=== PATIENT | female | born 1940 | race Caucasian/White ===

== ENCOUNTER 2016-11-15 23:35 | Emergency (ER) | payer MEDICARE, OTHER ==
[2017-01-07 13:23] VITALS: BMI 23.4
== END 2016-11-16 01:44 | disposition home or self-care (01) ==
LOC: D.ER 23:35
DX: T78.40XA Allergy, unspecified, initial encounter (principal); X58.XXXA Exposure to other specified factors, initial encounter; I48.91 Unspecified atrial fibrillation; I34.1 Nonrheumatic mitral (valve) prolapse; Z95.0 Presence of cardiac pacemaker; G20 Parkinson's disease

== ENCOUNTER 2016-11-27 15:42 | Emergency (ER) | payer MEDICARE, OTHER | END 2016-11-27 17:37 | disposition home or self-care (01) | LOC: D.ER 15:42 | DX: F41.9 Anxiety disorder, unspecified (principal); G20 Parkinson's disease; I48.91 Unspecified atrial fibrillation; Z95.0 Presence of cardiac pacemaker ==

== ENCOUNTER 2016-12-18 12:18 | Emergency (ER) | payer MEDICARE, OTHER ==
[2017-01-07 13:23] VITALS: BMI 23.4
== END 2016-12-18 14:57 | disposition home or self-care (01) ==
LOC: D.ER 12:18
DX: F41.9 Anxiety disorder, unspecified (principal); G20 Parkinson's disease; I48.2 Chronic atrial fibrillation; Z95.0 Presence of cardiac pacemaker

== ENCOUNTER 2017-01-04 18:26 | Observation (INO) | payer MEDICARE, OTHER ==
[~2017-01-04] VITALS: Ht 154.9 cm; Wt 55.3 kg
[2017-01-04 20:33] LABS: APPEARANCE CLEAR (CLEAR); BILIRUBIN NEGATIVE (NEGATIVE); COLOR YELLOW (YELLOW); GLUCOSE NEGATIVE (NEGATIVE); KETONE NEGATIVE (NEGATIVE); LEUKOCYTE ESTERASE NEGATIVE (NEGATIVE); NITRITE NEGATIVE (NEGATIVE); PROTEIN NEGATIVE (NEGATIVE); UROBILINOGEN NORMAL (NORMAL)
[2017-01-04 21:28] LABS: BASOPHILS 0.2 % (0.0-2.0); EOSINOPHILS 0.6 % (0-7); HEMATOCRIT 32.5 % (36.0-48.0); HEMOGLOBIN 10.9 g/dL (12-16); IMMATURE GRANULOCYTES 0.3 % (0-5); LYMPHOCYTES 35.2 % (15-50); MCH 29.6 pg (26.0-34.0); MCHC 33.5 g/dL (31.0-37.0); MCV 88.3 fL (80.0-100.0); MEAN PLATELET VOLUME 9.9 fL (7.4-10.4); MONOCYTES 7.8 % (2-11); NEUTROPHILS 55.9 % (40-80); PLATELET COUNT 141 10x3/uL (130-400); RBC 3.68 10x6/uL (4.00-5.40); RDW 13.9 % (11.5-14.5); WBC 6.5 10x3/uL (4.8-10.8)
[2017-01-04 21:45] LABS: CALCIUM 9.3 mg/dL (8.5-10.1); CARBON DIOXIDE 23.8 mmol/L (21.0-32.0); CREATININE - SERUM 1.3 mg/dL (0.6-1.3); POTASSIUM - SERUM 3.8 mmol/L (3.5-5.1)
[2017-01-05 00:18] VITALS: BP 129/65; BMI 23.1
--- NOTE | 2017-01-05 00:18 | NUR ---
RECIEVED PT FROM ER, ASSESSMENT COMPLETED, NO ACUTE DISTRESS NOTED, LUA DRAINING TO GRAVITY, IV TO L AC OCCLUDING, WILL RESITE PER PT REQUEST, PT AND SPOUSE ORIENTED TO ROOM AND CL, BOTH DENY NEEDS, FALL PRECAUTIONS IN PLACE, WILL MONITOR
[2017-01-05] MEDS ORDERED: SINEMET 25-1001 EACH PO (00:29)
[2017-01-05] MEDS ORDERED: CARDIZEM60 MG PO (00:30)
[2017-01-05] MEDS ORDERED: PACERONE200 MG PO (00:31)
[2017-01-05] MEDS ORDERED: MIRAPEX0.5 MG PO (00:31)
[2017-01-05] MEDS ORDERED: TRAZODONE HCL50 MG PO (00:32)
[2017-01-05] MEDS ORDERED: ELIQUIS5 MG PO (00:33)
[2017-01-05] MEDS ORDERED: XANAX0.5 MG PO (00:33)
--- NOTE | 2017-01-05 01:10 | NUR ---
IV TO L AC DC'D WITH CATH INTACT, 22 G PLACED IN L FOREARM X 1 ATTEMPT FLUIDS RESTARTED, DENISE WELL, DENIES NEEDS, FALL PRECAUTIONS IN PLACE, SPOUSE AT BEDSIDE, CL IN REACH
--- NOTE | 2017-01-05 04:54 | NUR ---
580 CC CLEAR YELLOW URINE EMPTIED FROM LUA, TUBING CLAMPED PER ORDERS, WILL REPORT TO DAY SHIFT, FALL PRECAUTIONS IN PLACE, CL IN REACH, SPOUSE IN ROOM
[2017-01-05 05:00] VITALS: BP 103/54
--- NOTE | 2017-01-05 07:00 | NUR ---
REPORT RECIEVED ASSUMED CARE. PATIENT IN BED WITH IV AND LUA INTACT. FAMILY AT BEDSIDE. CALL LIGHT WITHIN REACH.
--- NOTE | 2017-01-05 07:20 | NUR ---
pt voiced need to urinate, catheter unclamped, reported to day shift nurse
[2017-01-05 08:09] VITALS: BP 109/57
[2017-01-05 10:47] LABS: BASOPHILS 0 % (0.0-2.0); HEMATOCRIT 29.6 % (36.0-48.0); HEMOGLOBIN 9.7 g/dL (12-16); IMMATURE GRANULOCYTES 0.5 % (0-5); MCH 29.4 pg (26.0-34.0); MCHC 32.8 g/dL (31.0-37.0); MCV 89.7 fL (80.0-100.0); MEAN PLATELET VOLUME 9.4 fL (7.4-10.4); MONOCYTES 10.4 % (2-11); NEUTROPHILS 52.1 % (40-80); PLATELET COUNT 119 10x3/uL (130-400); RDW 14.4 % (11.5-14.5)
[2017-01-05 10:56] LABS: WBC 4.1 10x3/uL (4.8-10.8)
[2017-01-05 11:06] LABS: ALBUMIN 2.9 g/dL (3.4-5.0); ANION GAP 10.1 mmol/L (8-16); BILIRUBIN - TOTAL 0.62 mg/dL (0.2-1.3); CALCIUM 8.7 mg/dL (8.5-10.1); CARBON DIOXIDE 29.1 mmol/L (21.0-32.0); POTASSIUM - SERUM 4.2 mmol/L (3.5-5.1); PROTEIN - SERUM 6.1 g/dL (6.4-8.2)
[2017-01-05 11:56] VITALS: BP 118/65
[2017-01-05 14:19] VITALS: Ht 154.9 cm; Wt 55.3 kg
[2017-01-05 16:20] VITALS: BP 126/69
--- NOTE | 2017-01-05 18:45 | NUR ---
PATIENT IN BED WITH NO COMPLAINTS. IV AND LUA INTACT. LAYING DOWN WITH EYES CLOSED RESTIN. FAMILY AT BEDSIDE. CALL LIGHT WITHIN REACH. BA ON.
[2017-01-05 20:14] VITALS: BP 129/69
--- NOTE | 2017-01-05 20:54 | NUR ---
AROUSES EASILY TO VERBAL STIMULI. IV INFUSING TO LEFT ARM AT 100 CC/HR. NO REDNESS OR EDEMA NOTED. PURPLE BRUISING RO LEFT HIP NOTED. CL IN REACH. AT BEDSIDE.
[2017-01-06 00:04] VITALS: BP 143/73
--- NOTE | 2017-01-06 01:06 | NUR ---
RESTING QUIETLY.NO DISTRESS NOTED. CL IN REACH. AT BEDSIDE.
--- NOTE | 2017-01-06 03:26 | NUR ---
PT IS AWAKE RESTING QUEST IN BED WITH NO RESP DISTRESS NOTED AND NO COMPLAINTS VOICED. REMAINS AT THE BEDSIDE TALKING WITH ASSIGNED NURSE. THE BED IS LOW, RAILS UP X'S 2 WITH THE CALL LIGHT AT HAND.
[2017-01-06 03:59] VITALS: BP 123/61
--- NOTE | 2017-01-06 05:19 | NUR ---
AROUSES EASILY TO VERBAL STIMULI. NO DISTRESS NOTED. CL IN REACH.
[2017-01-06 05:50] LABS: BASOPHILS 0.2 % (0.0-2.0); EOSINOPHILS 1.5 % (0-7); HEMATOCRIT 30.5 % (36.0-48.0); HEMOGLOBIN 9.9 g/dL (12-16); IMMATURE GRANULOCYTES 0.2 % (0-5); LYMPHOCYTES 36.5 % (15-50); MCH 29.2 pg (26.0-34.0); MCHC 32.5 g/dL (31.0-37.0); MONOCYTES 11.6 % (2-11); PLATELET COUNT 127 10x3/uL (130-400); RBC 3.39 10x6/uL (4.00-5.40); RDW 14.2 % (11.5-14.5); WBC 4.1 10x3/uL (4.8-10.8)
[2017-01-06 06:14] LABS: ALBUMIN 2.7 g/dL (3.4-5.0); ANION GAP 10.1 mmol/L (8-16); BILIRUBIN - TOTAL 0.7 mg/dL (0.2-1.3); CALCIUM 8.1 mg/dL (8.5-10.1); CARBON DIOXIDE 28.5 mmol/L (21.0-32.0); POTASSIUM - SERUM 3.6 mmol/L (3.5-5.1); PROTEIN - SERUM 5.7 g/dL (6.4-8.2)
[2017-01-06 08:34] VITALS: BP 118/63
--- NOTE | 2017-01-06 10:55 | NUR ---
01/06/2017 10:54 DCP: Discharge Planning Inpatient rehab screen ordered & completed. Patient accepted & is agreeable to transfer. Waiting bed assignment.
--- NOTE | 2017-01-06 11:01 | NUR ---
Rehab Note- Spoke with patient, the patient is a good candidate for IRF. Spoke with Nadeen charge nurse & NUVIA Kirby. Thank you for this referral! Lee Ann Raymond RN Clinical Liaison, [facility]
[2017-01-06] MEDS ORDERED: ACETAMINOPHEN325 MG PO (11:43)
[2017-01-06] MEDS ORDERED: IPRAT-ALBUT 0.5-3 ML UPD (11:43)
[2017-01-06] MEDS ORDERED: PROTONIX40 MG PO (11:44)
[2017-01-06] MEDS ORDERED: ONDANSETRON4 MG/2 M3 IV (11:44)
[2017-01-06] MEDS ORDERED: LEVAQUIN500 MG PO (11:44)
[2017-01-06] MEDS ORDERED: PHENAZOPYRIDIN200 MG PO (11:44)
[2017-01-06 12:21] VITALS: BP 103/54
--- NOTE | 2017-01-06 15:09 | NUR ---
RECEIVED PATIENT LAYING IN BED. AWAKE AND ALERT. AT BEDSIDE. IV D5LR INFUSING AT 100CC/HR PER LEFT ARM. LUA TO GRAVITY DRAINING CLEAR YELLOW URINE. RELATES IS WETTING ON HERSELF AND URINE WAS NOTED TO BE ON HER SHEET. BULB DEFLATED AND RE-INFLATED. REPOSITONED DRAINAGE TUBE ON LEG. BED CLEANED AND WILL MONITOR FOR FURTHER LEAKAGE. LARGE BRUISE NOTED TO LEFT HIP FROM FALL PRIOR TO HOSPITALIZATION. CALM AND COOPERATIVE.
--- NOTE | 2017-01-06 20:40 | NUR ---
DISCHARGED TO REHAB. PERSONAL BELONGINGS SENT WITH PATIENT. REMAINS AT BEDSIDE.
== END 2017-01-06 22:49 ==
LOC: D.ER 18:26 → D.MS 21:46 → OBSVTIME 21:46 → D.MS 21:46 → D.ER 21:46 → D.MS 01-06 22:49
PROVIDERS: Nurse Practitioner Acute Care; ADMIT Family Medicine
DX: M25.552 Pain in left hip (principal); W18.30XA Fall on same level, unspecified, initial encounter; R53.2 Functional quadriplegia; G20 Parkinson's disease; E03.9 Hypothyroidism, unspecified; Z95.0 Presence of cardiac pacemaker; I48.91 Unspecified atrial fibrillation; Z90.710 Acquired absence of both cervix and uterus

== ENCOUNTER 2017-01-06 21:13 | Inpatient (IN) | payer MEDICARE, OTHER ==
[~2017-01-06] VITALS: Ht 154.9 cm; Wt 56.2 kg
--- NOTE | 2017-01-06 21:10 | NUR ---
PT ARRIVED TO UNIT VIA WHEELCHAIR ACCOMPANIED BY HOSPITAL STAFF. PT IS A&OX3. PT HAS BRUISING TO LEFT BUTTOCK FROM FALLING AT HOME. PT DENIES NEEDS AT THIS TIME. BED LOW. CL IN REACH.
[~2017-01-06 21:13] MED LIST: ACETAMINOPHEN325 MG PO; CARDIZEM60 MG PO; ELIQUIS5 MG PO; IPRAT-ALBUT 0.5-3 ML UPD; LEVAQUIN500 MG PO; MIRAPEX0.5 MG PO; ONDANSETRON4 MG/2 M3 IV; PACERONE200 MG PO; PHENAZOPYRIDIN200 MG PO; PROTONIX40 MG PO; SINEMET 25-1001 EACH PO; TRAZODONE HCL50 MG PO; XANAX0.5 MG PO
[2017-01-06 22:19] VITALS: BP 123/64; BMI 23.4
--- NOTE | 2017-01-07 01:10 | NUR ---
PT RESTING, EYES CLOSED. BED LOW. CL IN REACH.
[2017-01-07 07:02] LABS: BASOPHILS 0.1 % (0.0-2.0); EOSINOPHILS 0.6 % (0-7); HEMATOCRIT 33.2 % (36.0-48.0); HEMOGLOBIN 10.9 g/dL (12-16); IMMATURE GRANULOCYTES 0.1 % (0-5); LYMPHOCYTES 25.4 % (15-50); MCH 29.2 pg (26.0-34.0); MCHC 32.8 g/dL (31.0-37.0); MONOCYTES 7.4 % (2-11); NEUTROPHILS 66.4 % (40-80); PLATELET COUNT 141 10x3/uL (130-400); RBC 3.73 10x6/uL (4.00-5.40); RDW 13.9 % (11.5-14.5)
[2017-01-07 07:10] LABS: WBC 7.7 10x3/uL (4.8-10.8)
[2017-01-07 07:12] LABS: ANION GAP 10.2 mmol/L (8-16); CALCIUM 8.8 mg/dL (8.5-10.1); CARBON DIOXIDE 29.6 mmol/L (21.0-32.0); CREATININE - SERUM 1.1 mg/dL (0.6-1.3); POTASSIUM - SERUM 3.8 mmol/L (3.5-5.1)
--- NOTE | 2017-01-07 08:15 | NUR ---
PT RESTING IN BED EATING BREAKFAST TOLERATING WELL WILL MONITER
[2017-01-07 08:22] VITALS: BP 130/66
--- NOTE | 2017-01-07 09:28 | NUR ---
RESTING QUIETLY IN BED CALL LIGHT IN REACH
[2017-01-07 13:23] VITALS: Ht 154.9 cm; Wt 56.2 kg
--- NOTE | 2017-01-07 17:43 | NUR ---
PT RESTING IN BED WITH EYES OPEN CALL LIGHT IN REACH NO PROBLEMS WILL MONITER
[2017-01-07 19:30] VITALS: BP 118/62
--- NOTE | 2017-01-07 21:40 | NUR ---
PT REQ AND REC'D PRN XANAX FOR ANXIETY ALONG WITH HS MEDS. PT DENIES FURTHUR NEEDS AT THIS TIME. BED LOW. CL IN REACH.
--- NOTE | 2017-01-08 01:45 | NUR ---
PT RESTING EYES CLOSED. BED LOW. CL IN REACH. WCTM.
[2017-01-08 07:00] VITALS: BP 115/71
--- NOTE | 2017-01-08 07:00 | NUR ---
Pt. was received at the beginning of this shift in bed awake and oriented x 3. No voiced complaints or concerns at this time. Vital signs: Temp. 96.6, pulse 72, resp. 16, b/p 115/71, 02Sat. 98%. Pt. will be monitored throughout this shift and assisted prn with adl's. Ma catheter has orange colored urine draining into closed bag system due to medication she is on. Telemetry is on and working. Call light is in reach.
--- NOTE | 2017-01-08 18:24 | NUR ---
Pt. complained of discomfort this morning and received Tylenol 650mg at 10:15am. She also became quite anxious and worried about her turcios catheter and the nurse that put it in her. She was given a Xanax 0.5mg at that time also. She complained of not having a bm when she heard her roommate has not had a bm lately. When her roommate was offered Prune juice and Miralax she chimmed in and said, "I'll take some of that." She was given the prune juice and miralax at 6pm. present visiting.
--- NOTE | 2017-01-08 19:35 | NUR ---
IN BED, TALKING IN CELLPHONE. DENIES NEEDS.
[2017-01-08 21:20] VITALS: BP 99/62
--- NOTE | 2017-01-08 21:20 | NUR ---
ASSESSMENT AND HS MEDS COMPLETE. NOTED PINK URINE WITH A FEW SMALL CLOTS IN LUA DRAIN LINE. BRIDGED HEELS FOR PRESSURE RELIEF. GAVE PATIENT XANAX 0.5 MG PO FOR C/O ANXIETY.
--- NOTE | 2017-01-09 | NUR ---
RESTING QUIETLY IN BED, EYES CLOSED.
--- NOTE | 2017-01-09 02:05 | NUR ---
RESTING IN BED, EYES CLOSED. NO APPARENT DISTRESS.
--- NOTE | 2017-01-09 04:40 | NUR ---
OM BED. AWAKENED I ENTERED ROOM TO EMPTY HER LUA DRAINAGE BAG. DENIES CURRENT NEEDS.
--- NOTE | 2017-01-09 06:45 | NUR ---
REMAINS IN BED, AWAKE. TOOK SCHEDULED PO PROTONIX. DENIES CURRENT NEEDS.
[2017-01-09 08:00] VITALS: BP 129/56
--- NOTE | 2017-01-09 08:00 | NUR ---
ANOTHER NURSE ASSISTED PATIENT TO WHEELCHAIR TO THE BATHROOM AND FROM THE BATHROOM BACK TO WHEELCHAIR. PATIENT IN WHEELCHAIR BESIDE HER BED. ASSESSED PATIENT'S ORIENTATION, PATIENT ORIENTED X'S 4. ANSWERED ALL QUESTIONS APPROPRIATELY. PATIENT DENIES NEEDS. SET UP PATIENTS BREAKFAST TRAY FOR HER. CALL LIGHT IN REACH.
--- NOTE | 2017-01-09 09:37 | NUR ---
PATIENT IS IN BED, ASSISTED INTO BED BY FREDO JACINTO. PATIENT STATED HER RIGHT HIP IS HURTING. SHE REQUESTED TYLENOL. ADMINISTERED TYLENOL, SEE JAN. PATIENT STATED SHE IS NOT COMFORTABLE. ASSISTED PATIENT TURNING TO HER LEFT SIDE AND POSITIONED A PILLOW BEHIND HER RIGHT HIP. PATIENT STATED SHE IS NOW MORE COMFORTABLE. PATIENT DENIES FURTHER NEEDS AT THIS TIME. BED IN LOWEST POSITION, CALL LIGHT IN REACH. BED RAILS UP X'S 2. AT BEDSIDE.
--- NOTE | 2017-01-09 12:20 | NUR ---
ASSISTED PATIENT FROM THE BATHROOM TO THE WHEELCHAIR. MINIMUM ASSISTANCE REQUIRED. ROLLED PATIENT IN WHEELCHAIR BESIDE HER BED, SET UP HER BEDSIDE TABLE IN REACH WITH HER TRAY. PATIENT NOW EATING LUNCH. CALL LIGHT IN REACH.
--- NOTE | 2017-01-09 13:45 | NUR ---
D/C PATIENT'S LUA CATHETER. WHILE TAKING OUT CATHETER A NURSE CAME IN AND STATED THE STUD SETTER SAID THE PATIENT IS IN V-TACH. I EXPLAINED THAT THE PATIENT IS HAVING TREMORS AND THE NURSE I GOT REPORT FROM LAST NIGHT SAID THAT TWICE LAST NIGHT THE STUD SETTER SAID IT LOOKED LIKE V-TACH WHEN THE PATIENT WAS HAVING TREMORS. PATIENT DOES NOT APPEAR TO BE IN DISTRESS. ONLY PAIN SHE STATED SHE IS HAVING IS IN HER RIGHT HIP. PATIENT STATED "WHEN MY TREMORS START BEING REALLY BAD LIKE THIS AT HOME I TAKE A XANAX. CAN I HAVE A XANAX. I HAVE ANXIETY. AND WHEN I GET ANXIOUS MY TREMORS GET WORSE."
--- NOTE | 2017-01-09 13:59 | NUR ---
CALLED ZANA, THE VEGETABLE GRADER ASKED HOW PATIENT'S RHYTHM IS NOW, SHE STATED "SHE IS 71 PACED."
--- NOTE | 2017-01-09 22:06 | NUR ---
PT RESTING IN BED WITH EYES CLOSED. AWOKE EASILY TO VERBAL STIMULI. ALERT AND ORIENTED X 3. DENIES ANY PAIN OR DISCOMFORT AT THIS TIME. PT ASSISTED UP TO THE BATHROOM AT THIS TIME. VOIDED WITHOUT DIFFICULTY. FULL BODY PARKINSONS TREMORS NOTED. PT TRANSFERS WITH SBA. VOIDED WITH SBA. VSS. TELEMETRY PADS NOTED TO BE LOOSENING, AND REPLACED AT THIS TIME. SR'S ARE UP X 2 IN BED. CALL LIGHT AND BEDSIDE TABLE ARE WITHIN EASY REACH.
--- NOTE | 2017-01-09 22:09 | NUR ---
PT IS RESTING IN BED WITH EYES OPEN. REQUESTED LIGHTS OUT.
[2017-01-09 22:26] VITALS: BP 136/61
--- NOTE | 2017-01-09 23:40 | NUR ---
RESTING IN BED, HOB UP 30 DEGREES. NO DISTRESS EVIDENT.
--- NOTE | 2017-01-10 02:02 | NUR ---
PT IS RESTING QUIETLY IN BED WITH EYES CLOSED. RESPS ARE EVEN AND UNLABORED. NO ACUTE DISTRESS NOTED.
--- NOTE | 2017-01-10 04:54 | NUR ---
PT ASSISTED TO THE BATHROOM. VOIDED WITHOUT DIFFICULTY. NO FURTHER NEEDS VOICED.
[2017-01-10 06:17] LABS: BASOPHILS 0.2 % (0.0-2.0); EOSINOPHILS 1.8 % (0-7); HEMATOCRIT 30.3 % (36.0-48.0); HEMOGLOBIN 10.2 g/dL (12-16); IMMATURE GRANULOCYTES 0.9 % (0-5); LYMPHOCYTES 31.5 % (15-50); MCH 30.3 pg (26.0-34.0); MCHC 33.7 g/dL (31.0-37.0); MCV 89.9 fL (80.0-100.0); MONOCYTES 11.6 % (2-11); PLATELET COUNT 157 10x3/uL (130-400); RBC 3.37 10x6/uL (4.00-5.40); RDW 14.5 % (11.5-14.5); WBC 5.6 10x3/uL (4.8-10.8)
[2017-01-10 06:46] LABS: ANION GAP 13.4 mmol/L (8-16); CALCIUM 8.9 mg/dL (8.5-10.1); CARBON DIOXIDE 26.7 mmol/L (21.0-32.0); CREATININE - SERUM 1.2 mg/dL (0.6-1.3); POTASSIUM - SERUM 4.1 mmol/L (3.5-5.1)
--- NOTE | 2017-01-10 07:00 | NUR ---
Pt. is resting in bed awake and oriented x 3. at bedside. Vital signs: Temp. 97.9, pulse 80, resp. 14, b/p 140/80, 02Sat. 98%. Call light in reach. No complaints or concerns at this time. Will be monitoring her and assisting prn with adl's.
--- NOTE | 2017-01-10 07:26 | RHP ---
PATIENT: CAITLIN ALVAREZ MEDICAL RECORD: [id number] ACCOUNT: [id number] LOCATION:[facility] Ledy1111 : 44 ADMISSION DATE: 01/06/17 REHABILITATION HISTORY AND PHYSICAL EXAMINATION POST ADMISSION PHYSICIAN EXAMINATION DATE OF ADMISSION TO THE REHAB: 01/06/2017 ADMITTING DIAGNOSES: Parkinson disease, bradykinesia and hypophonia. HISTORY OF PRESENT ILLNESS: The patient is a 76-year-old female admitted with Parkinson disease with frequent falls. She was diagnosed with idiopathic Parkinson disease many years ago, was taken care of at one point by neurologist, who is no longer practicing. She usually uses a rolling walker for ambulation, but has had at least 2-3 falls in the recent past, not clear if there has been a significant change in function, but on one occasion, she got up during the night without lights to go to the bathroom and became tangled in a rolling walker. On another, she headed into the bathroom where she fell backwards. She complained of left hip pain, most recent fall. Plain films revealed no fracture. She is awake and alert. Her extraocular muscles are intact. Her visual sutton appear to be within normal limits. Her face is symmetric. She has 5/5 strength in her extremities, but does have a noted resting tremor. There is no clear asymmetry at this time. Previously, she was moderately independent with a walker. Currently, she is having difficulty swallowing and urinary retention with pain. She will need a swallow eval to rule out aspiration as well as bladder training after she completes 5 days of antibiotics. COMORBIDITIES: Include functional quadriplegia, resting tremors, frequent falls, urinary retention, acute ____ pain, osteoarthritis, fatigue, weakness and pacemaker placement in the past. PAST MEDICAL HISTORY: Significant for frequent falls, urinary retention, osteoarthritis, Parkinson disease. PAST SURGICAL HISTORY: Includes cataract surgery, post-pacemaker placement, hysterectomy. ALLERGIES: CODEINE. CURRENT MEDICATIONS: Include Floranex daily. She is on Desyrel 50 mg q.h.s., Mirapex 0.25 mg t.i.d., Pyridium 200 mg t.i.d., Protonix 40 mg daily, Levaquin 500 mg daily, diltiazem 60 mg t.i.d., Sinemet 25/100 one tab t.i.d., Eliquis 5 mg b.i.d., amiodarone 200 mg b.i.d., Zofran 4 mg q.6 hours p.r.n. nausea and vomiting, DuoNeb updrafts, Xanax 0.5 mg t.i.d. p.r.n. and Tylenol 650 q.4-6 hours p.r.n. elevated temperature or pain. HABITS: No alcohol or tobacco use. FAMILY HISTORY: Noncontributory. SOCIAL HISTORY: The patient is and wants to return home with her spouse. REVIEW OF SYSTEMS: GENERAL: Does complain of weakness and fatigue. HISTORY AND PHYSICAL [id number] HAND,CAITLIN Rosa HEENT: Denies cold, cough or congestion. CARDIOVASCULAR: Denies chest pain. PHYSICAL EXAMINATION: VITAL SIGNS: Stable, afebrile. GENERAL: Thin female in no acute distress, alert upon exam. HEENT: Normocephalic, atraumatic. Mucosa moist. TMs appear shiny and mobile. NECK: Supple, with no lymphadenopathy. LUNGS: Clear at this time. HEART: Regular rate and rhythm. ABDOMEN: Benign. EXTREMITIES: No clubbing, cyanosis or edema. NEUROLOGIC: Consistent with Parkinson's. She does have a pill rolling tremor and bradykinesia. LABORATORY DATA: Her white count is 7.7, H&H of 11 and 33, and platelet count is 141. Her sodium is 139, potassium 3.8, BUN and creatinine of 13 and 1.1 and blood sugar is noted to be 84. ASSESSMENT: This is a 76-year-old female patient admitted to rehab with a working diagnosis of Parkinson disease with worsening symptomatology and frequent falls. The patient has potential to make improvement. We instituted the following multidisciplinary therapies including to, but not limited to physical, occupational, respiratory, speech, nutritional services, prosthetics and orthotics. Given her complex condition and risk for more complications, rehabilitation services cannot be provided at a low level of care such as a assisted facility. PLAN: 1. Admit to [facility] rehab for intensive inpatient therapy to include the following disciplines: A. Physical therapy to improve gait, all transfer skills and bed mobility to a modified independent level. B. Occupation therapy to improve activities of daily living to a modified independent level. C. Case management to assist with discharge planning and placement options. D. Nutrition to assist with nutritional needs. E. Rehabilitation nursing to assist in monitoring patient's underlying medical conditions and to assist with any type of bowel or bladder management. 2. The patient's current medication and medical care will be continued. 3. The patient will be placed on standard fall precautions. 4. We will work on getting her more stable on a rolling walker, so she can return home with her spouse and get back to her prior level of functioning. 5. We will discuss this patient during care team staff meeting this week. TRANSINT:[id number] Voice Confirmation ID: [id number] DOCUMENT ID: [id number] HISTORY AND PHYSICAL [id number] HANDCAITLIN SCOTT MD at 0726 CC: [id number] DICTATION DATE: 01/07/17823 ANGIOGRAPHY NURSE: 01/07/17 1240 ADM IN [place] [id number] [place] [address]
[2017-01-10 10:39] VITALS: BP 110/70
--- NOTE | 2017-01-10 10:54 | NUR ---
Pt. was seen by Dr. Castano this am and new order received for Dr. العلي consult. Dr. العلي's office notified of order for pt to be seen by Dr. العلي regarding her Parkinson's DX and her increased tremors. Pt. asked for something for headache and received Tylenol 650mg at 9:20am. Pt. went to therapy this morning.
--- NOTE | 2017-01-10 15:19 | NUR ---
Pt. is resting with eyes closed and lights off in her room at this time. Fresh ice water provided a second time this shift. No verbal requests at this time.
--- NOTE | 2017-01-10 18:40 | NUR ---
Pt. has rested well this evening. Her is back visiting her now.
[2017-01-10 19:00] VITALS: BP 127/68
--- NOTE | 2017-01-10 19:25 | NUR ---
RE-DELIVERED MENU TO PATIENT FOR COMPLETION SHE HAD NOT FINISHED IT BEFORE IT WAS PLACE BACK AT NURSING STATION.
--- NOTE | 2017-01-10 21:20 | NUR ---
IN BED, AWAKE. DENIES NEEDS.
--- NOTE | 2017-01-10 22:05 | NUR ---
ASSESSMENT AND HS MEDS COMPLETE. DENIES ANXIETY AT THIS TIME SAYING, "I DON'T NEED MY XANAX. I TOOK IT IN THE AFTERNOON AND I'M OK NOW." REFUSED PYRIDIUM. SAYS SHE IS NOT HAVING BLADDER SPASMS SINCE HER LUA CATHETER WAS D/C'D ON THE .
--- NOTE | 2017-01-10 23:45 | NUR ---
RESTING IN BED, EYES CLOSED.
--- NOTE | 2017-01-11 02:00 | NUR ---
PATIENT AWAKE. DENIES NEEDS.
--- NOTE | 2017-01-11 05:50 | NUR ---
GAVE PATIENT SCHEDULED PROTONIX. SAYS SHE WILL DO THERAPY IN CURRENT CLOTHING.
--- NOTE | 2017-01-11 07:40 | NUR ---
INTRODUCED SELF TO PT, BREAKFAST SERVED, PT STATES NO NEEDS AT THIS TIME, WILL CONTINUE TO MONITOR, CALL LIGHT WITHIN REACH.
[2017-01-11 08:17] VITALS: BP 126/71
--- NOTE | 2017-01-11 09:35 | NUR ---
MORNING MEDICATION GIVEN, PT IN THERAPY ROOM, PT TOLERATED WELL, WILL CONTINUE TO MONITOR.
--- NOTE | 2017-01-11 10:38 | NUR ---
PT IN THERAPY, WILL CONTINUE TO MONITOR.
--- NOTE | 2017-01-11 12:08 | NUR ---
AFTERNOON MEDICATION GIVEN, PT TOLERATED WELL, LUNCH DELIVERED, PT STATES NO NEW NEEDS AT THIS TIME, WILL CONTINUE TO MONITOR, CALL LIGHT WITHIN REACH.
--- NOTE | 2017-01-11 14:00 | NUR ---
Nutrition Follow Up: Chart reviewed. Pt is eating 89% meal avg on a Regular diet. Wt stable. +BM 01/10/17. Meds and labs noted. Pt with excellent po intake. Rec continue current diet. Will continue to provide selective menus and honor food preferences. RD following.
--- NOTE | 2017-01-11 14:31 | NUR ---
PT UP IN CHAIR TALKING WITH SPEECH THERAPY, AT SIDE, WILL CONTINUE TO MONITOR, CALL LIGHT WITHIN REACH.
--- NOTE | 2017-01-11 14:43 | NUR ---
AFTERNOON MEDICATION GIVEN, PT TOLERATED WELL, AT BEDSIDE, WILL CONTINUE TO MONITOR, CALL LIGHT WITHIN REACH.
--- NOTE | 2017-01-11 15:16 | NUR ---
PT STATES PAIN IN HIPS AT A 10, PAIN MED GIVEN, WILL CONTINUE TO MONITOR, CALL LIGHT WITHIN REACH.
--- NOTE | 2017-01-11 16:08 | NUR ---
PT TALKING ON CELL PHONE, PT STATES NO NEEDS AT THIS TIME, BED IN LOW POSITION, SIDE RAILS UP X'S 2, CALL LIGHT WITHIN REACH, WILL CONTINUE TO MONITOR.
--- NOTE | 2017-01-11 17:36 | NUR ---
PT SITTING UP IN CHAIR EATING DINNER, PT STATES NO NEEDS AT THIS TIME, WILL CONTINUE TO MONITOR, CALL LIGHT WITHIN REACH.
--- NOTE | 2017-01-11 18:22 | NUR ---
RESTING QUIETLY IN BED
--- NOTE | 2017-01-11 19:18 | NUR ---
PT RESTING QUIETLY IN SEMI PERRY POSITION, RESPIRATIONS REGULAR AND UNLABORED, NO S/S OF ACUTE DISTRESS. PT DENIES NEEDS. HAND TREMORS NOTED BILATERAL.
[2017-01-11 19:35] VITALS: BP 113/72
--- NOTE | 2017-01-11 21:00 | NUR ---
PT REQ AND REC'D XANAX AND TYLENOL WITH HS MEDS. PT DENIES FURTHUR NEEDS. WCTM. BED LOW. CL IN REACH.
--- NOTE | 2017-01-12 | NUR ---
PT RESTING, EYES CLOSED. BED LOW. CL IN REACH.
--- NOTE | 2017-01-12 01:56 | NUR ---
ASSISTED PT TO BR. PT BACK IN BED RESTING AND DENIES FURTHUR NEEDS. WCTM. BED LOW. CL IN REACH.
--- NOTE | 2017-01-12 04:44 | NUR ---
PT RESTING, EYES CLOSED. BED LOW. CL IN REACH.
[2017-01-12 06:20] LABS: BASOPHILS 0 % (0.0-2.0); EOSINOPHILS 1.5 % (0-7); HEMATOCRIT 29.9 % (36.0-48.0); HEMOGLOBIN 9.8 g/dL (12-16); IMMATURE GRANULOCYTES 1.2 % (0-5); MCH 29.6 pg (26.0-34.0); MCHC 32.8 g/dL (31.0-37.0); MCV 90.3 fL (80.0-100.0); MEAN PLATELET VOLUME 9.5 fL (7.4-10.4); MONOCYTES 11.6 % (2-11); NEUTROPHILS 57.7 % (40-80); PLATELET COUNT 155 10x3/uL (130-400); RBC 3.31 10x6/uL (4.00-5.40); RDW 14.7 % (11.5-14.5); WBC 5.2 10x3/uL (4.8-10.8)
--- NOTE | 2017-01-12 06:30 | NUR ---
PT TOOK AM MEDS WITHOUT DIFFICULTY. PT ASSISTED TO BR. PT BACK IN BED AND DENIES FURTHUR NEEDS. WCTM. BED LOW. CL IN REACH.
[2017-01-12 06:35] LABS: ANION GAP 11.1 mmol/L (8-16); CALCIUM 8.9 mg/dL (8.5-10.1); CREATININE - SERUM 1.3 mg/dL (0.6-1.3); POTASSIUM - SERUM 4.1 mmol/L (3.5-5.1)
--- NOTE | 2017-01-12 07:00 | NUR ---
Pt. was received at the beginning of this shift in bed awake and oriented x 3. No verbal complaints at this time. Will continue to monitor and assist prn with adl's. Call light is in her reach. No discomfort or distress found. Stable condition observed. Vital signs: Temp. 97.7, pulse 73, resp. 15, b/p 136/70, 02sat. 98%.
[2017-01-12 08:16] VITALS: BP 136/70
--- NOTE | 2017-01-12 15:16 | NUR ---
CARE TEAM MEETING: PATIENT AND SPOUSE ATTENDED MEETING. TENATIVE DISCHARGE DATE IS 01/14/17. PCP IS DILAN ROSENBAUM WILL FOLLOW WITH PATIENT. WILL CONTINUE TO FOLLOW WITH PATIENT UNTIL DISCHARGED
[2017-01-12 19:00] VITALS: BP 113/65
--- NOTE | 2017-01-12 19:35 | NUR ---
PT. IN BED WITH HOB UP FOR COMFORT WITH EYES CLOSED AND RESP. EVEN. PT. AWAKENS EASILY FOR ASSESSMENT. TREMORS TO BUE'S OBSERVED. PT. REPORTS THAT THE MD CHANGED HER MEDS TODAY IN HOPES TO DECREASE THE TREMORS. DRESSING TO LEFT HAND FROM INJURY PT. OBTAINED LAST NIGHT SHE SAID FROM THE W/C WHEN SHE WAS GOING TO THE BATHROOM. DRESSING C/D/I. PT. HAS NO VOICED NEEDS AT THIS TIME AND HER CALL LIGHT IS WITHIN REACH.
--- NOTE | 2017-01-12 23:03 | NUR ---
PT. IN BED WITH HOB UP FOR COMFORT WITH EYES CLOSED AND RESP. EVEN. CALL LIGHT WITHIN REACH.
--- NOTE | 2017-01-13 03:02 | NUR ---
PT. IN BED WITH HOB UP FOR COMFORT WITH EYES CLOSED AND RESP. EVEN. CALL LIGHT WITHIN REACH.
--- NOTE | 2017-01-13 07:50 | NUR ---
ASSSITED TO BR WITHOUT FALLS NOTED.
[2017-01-13 10:18] VITALS: BP 138/69
--- NOTE | 2017-01-13 11:50 | NUR ---
AMBULATING IN THE HALLWAY WITH THERAPY.
--- NOTE | 2017-01-13 13:41 | NUR ---
SITTING IN WHEELCHAIR IN THE GYM.
--- NOTE | 2017-01-13 15:38 | NUR ---
RESTING IN BED WITHOUT ANY NEEDS VOICED.
--- NOTE | 2017-01-13 16:50 | NUR ---
SITTING IN WHEELCHAIR TALKING TO PT IN ROOM 8842C.
--- NOTE | 2017-01-13 19:30 | NUR ---
SPOUSE AND PT WERE VISITING PT'S COUSIN ON UNIT, SPOUSE PUSHES PATIENT IN W/C. PT MOD IND TRANSFERRED SELF TO BED FROM W/C. COUPLE CONVERSE, PLEASANT, DENIES ANY NEEDS. PT STATES SHE IS READY TO GO HOME.
[2017-01-13 19:50] VITALS: BP 101/49
--- NOTE | 2017-01-14 00:38 | NUR ---
PT RESTING QUIETLY, RESPIRATIONS REGULAR AND UNLABORED, NO S/S OF ACUTE DISTRESS.
--- NOTE | 2017-01-14 06:48 | NUR ---
PT IN BED WITH HOB UP FOR COMFORT, EYES CLOSED, CHEST RISING AND FALLING, BED IN LOWEST POSITION AND CALL LIGHT WITHIN REACH.
--- NOTE | 2017-01-14 07:40 | NUR ---
SLEEPING IN BED WITH SIDERAILS UP X2.
[2017-01-14 08:55] VITALS: BP 118/53
--- NOTE | 2017-01-14 09:30 | NUR ---
PATIENT DISCHARGING HOME WITH SPOUSE.PATIENT CHOSE [facility] . [facility] WILL FOLLOW WITH PATIENT AT HOME. APPOINTMENTS: DR. MOSQUERA 01/24/17 @ 12:15, DR. JOSEPH 02/09/17 @ 8:20. PATIENT CHOICE FORM FOR HOME HEALTH AND [facility] FORM EXPLAINED, SIGNED AND FILED IN CHART. ORDERS HAVE BEEN FAXED WITH CONFORMATION RECIEVED.
--- NOTE | 2017-01-14 09:50 | NUR ---
DISCHARGE INSTRUCTIONS GIVEN AND EXPLAINED TO PT. D/C SALINE LOCK IN RT WRIST WITH 2X2 GAUZE AND TAPE APPLIED.
--- NOTE | 2017-01-14 10:25 | NUR ---
D/C HOME VIA WHEELCHAIR. STABLE CONDITION.
== END 2017-01-14 10:25 | disposition home health service (06) | DRG 56 ==
LOC: D.REHAB 21:13
PROVIDERS: ADMIT Emergency Medicine
DX: G20 Parkinson's disease (principal); R53.2 Functional quadriplegia; Z91.81 History of falling; R33.9 Retention of urine, unspecified; M19.90 Unspecified osteoarthritis, unspecified site; R53.83 Other fatigue; R53.1 Weakness; Z95.0 Presence of cardiac pacemaker; E03.9 Hypothyroidism, unspecified; I48.2 Chronic atrial fibrillation

== ENCOUNTER 2017-03-14 14:26 | Emergency (ER) | payer MEDICARE, OTHER ==
[2017-01-07 13:23] VITALS: BMI 23.4
[2017-03-14 16:39] LABS: BASOPHILS 0 % (0-2); EOSINOPHILS 0.2 % (0-7); HEMATOCRIT 32.9 % (36.0-48.0); HEMOGLOBIN 11.4 g/dL (12-16); IMMATURE GRANULOCYTES 0.4 % (0-5); LYMPHOCYTES 26.4 % (15-50); MCH 30.7 pg (26.0-34.0); MCHC 34.7 g/dL (31.0-37.0); MCV 88.7 fL (80.0-100.0); MEAN PLATELET VOLUME 10.1 fL (7.4-10.4); MONOCYTES 7.7 % (2-11); NEUTROPHILS 65.3 % (40-80); PLATELET COUNT 176 10x3/uL (130-400); RBC 3.71 10x6/uL (4.00-5.40); RDW 12.7 % (11.5-14.5)
[2017-03-14 16:50] LABS: APTT 33.7 SECONDS (22.8-39.4); INR 2.05 (0.85-1.17); PROTIME 23.1 SECONDS (11.6-15.0)
[2017-03-14 16:57] LABS: ALBUMIN 4.1 g/dL (3.4-5.0); ANION GAP 13.9 mmol/L (8-16); BILIRUBIN - TOTAL 0.9 mg/dL (0.2-1.3); CALCIUM 9.5 mg/dL (8.5-10.1); CARBON DIOXIDE 28.6 mmol/L (21.0-32.0); CREATININE - SERUM 1.8 mg/dL (0.6-1.3); POTASSIUM - SERUM 3.5 mmol/L (3.5-5.1); PROTEIN - SERUM 7.7 g/dL (6.4-8.2)
[2017-03-14 18:10] LABS: APPEARANCE CLEAR (CLEAR); BILIRUBIN NEGATIVE (NEGATIVE); COLOR YELLOW (YELLOW); GLUCOSE NEGATIVE (NEGATIVE); KETONE NEGATIVE (NEGATIVE); LEUKOCYTE ESTERASE NEGATIVE (NEGATIVE); NITRITE NEGATIVE (NEGATIVE); PROTEIN NEGATIVE (NEGATIVE); SPECIFIC GRAVITY 1.015 (1.005-1.020); UROBILINOGEN NORMAL (NORMAL)
== END 2017-03-14 19:56 | disposition home or self-care (01) ==
LOC: D.ER 14:26
PROVIDERS: Emergency Medicine
DX: R10.9 Unspecified abdominal pain (principal); K59.00 Constipation, unspecified; E87.1 Hypo-osmolality and hyponatremia; I48.2 Chronic atrial fibrillation; Z95.0 Presence of cardiac pacemaker; I34.1 Nonrheumatic mitral (valve) prolapse; G20 Parkinson's disease

== ENCOUNTER 2017-08-17 01:42 | Emergency (ER) | payer MEDICARE, OTHER ==
[2017-01-07 13:23] VITALS: BMI 23.4
== END 2017-08-17 03:40 | disposition home or self-care (01) ==
LOC: D.ER 01:42
DX: G20 Parkinson's disease (principal); D49.89 Neoplasm of unspecified behavior of other specified sites; R60.0 Localized edema

== ENCOUNTER 2017-08-29 20:24 | Emergency (ER) | payer MEDICARE, OTHER ==
[2017-01-07 13:23] VITALS: BMI 23.4
[2017-08-29 20:52] LABS: BASOPHILS 0 % (0-2); EOSINOPHILS 0.9 % (0-7); HEMATOCRIT 30.9 % (36.0-48.0); HEMOGLOBIN 10.3 g/dL (12-16); IMMATURE GRANULOCYTES 0.6 % (0-5); MCH 30.2 pg (26.0-34.0); MCHC 33.3 g/dL (31.0-37.0); MCV 90.6 fL (80.0-100.0); MEAN PLATELET VOLUME 9.9 fL (7.4-10.4); MONOCYTES 11.9 % (2-11); NEUTROPHILS 56.6 % (40-80); PLATELET COUNT 150 10x3/uL (130-400); RBC 3.41 10x6/uL (4.00-5.40); RDW 13.9 % (11.5-14.5); WBC 6.4 10x3/uL (4.8-10.8)
[2017-08-29 21:08] LABS: INR 1.48 (0.85-1.17); PROTIME 17.8 SECONDS (11.6-15.0)
[2017-08-29 21:20] LABS: ALBUMIN 3.1 g/dL (3.4-5.0); ALKALINE PHOSPHATASE 116 U/L (46-116); ALT (SGPT) 13 U/L (10-68); BILIRUBIN - TOTAL 0.52 mg/dL (0.2-1.3); CALC OSMOLALITY 285 mosm/kg (275-300); CALCIUM 8.7 mg/dL (8.5-10.1); CARBON DIOXIDE 26.8 mmol/L (21.0-32.0); CHLORIDE - SERUM 101 mmol/L (98-107); CREATININE - SERUM 1.7 mg/dL (0.6-1.3); GLUCOSE 99 mg/dL (74-106); POTASSIUM - SERUM 3.8 mmol/L (3.5-5.1); PROTEIN - SERUM 6.5 g/dL (6.4-8.2); SODIUM 139 mmol/L (136-145); UREA NITROGEN 34 mg/dL (7-18); eGFR NON AFRICAN AMERICAN 31 mL/min (90-120)
[2017-08-29 21:32] LABS: TROPONIN-I < 0.017 ng/mL (0.000-0.060)
[2017-08-29 21:40] LABS: APTT 34.6 SECONDS (22.8-39.4)
[2017-08-29 21:44] LABS: APPEARANCE CLEAR (CLEAR); BILIRUBIN NEGATIVE (NEGATIVE); COLOR YELLOW (YELLOW); GLUCOSE NEGATIVE (NEGATIVE); KETONE NEGATIVE (NEGATIVE); NITRITE NEGATIVE (NEGATIVE); PROTEIN NEGATIVE (NEGATIVE); UROBILINOGEN NORMAL (NORMAL)
[2017-08-29 21:46] LABS: BACTERIA FEW /hpf (NONE SEEN); RED CELLS - URINE 0-5 /hpf (0-5)
== END 2017-08-29 23:02 | disposition home or self-care (01) ==
LOC: D.ER 20:24
PROVIDERS: Emergency Medicine
DX: R20.2 Paresthesia of skin (principal); R60.0 Localized edema; F41.9 Anxiety disorder, unspecified; W19.XXXA Unspecified fall, initial encounter; Y93.89 Activity, other specified; Y92.89 Other specified places as the place of occurrence of the external cause

== ENCOUNTER 2017-10-12 10:40 | Inpatient (IN) | payer MEDICARE, OTHER ==
[~2017-10-12] VITALS: Ht 154.9 cm; Wt 54.4 kg
[2017-10-12 11:44] LABS: BASOPHILS 0.1 % (0-2); EOSINOPHILS 1.1 % (0-7); HEMOGLOBIN 10.8 g/dL (12-16); IMMATURE GRANULOCYTES 0.4 % (0-5); LYMPHOCYTES 18.1 % (15-50); MCH 29.8 pg (26.0-34.0); MCHC 33.8 g/dL (31.0-37.0); MCV 88.4 fL (80.0-100.0); MEAN PLATELET VOLUME 9.5 fL (7.4-10.4); MONOCYTES 11.4 % (2-11); NEUTROPHILS 68.9 % (40-80); RBC 3.62 10x6/uL (4.00-5.40); RDW 13.9 % (11.5-14.5); WBC 8.3 10x3/uL (4.8-10.8)
[2017-10-12 11:50] LABS: PLATELET COUNT 186 10x3/uL (130-400)
[2017-10-12 12:00] LABS: ALBUMIN 3.3 g/dL (3.4-5.0); ALKALINE PHOSPHATASE 105 U/L (46-116); ALT (SGPT) 7 U/L (10-68); BILIRUBIN - TOTAL 0.74 mg/dL (0.2-1.3); CALC OSMOLALITY 279 mosm/kg (275-300); CALCIUM 8.9 mg/dL (8.5-10.1); CARBON DIOXIDE 25.5 mmol/L (21.0-32.0); CHLORIDE - SERUM 100 mmol/L (98-107); CREATININE - SERUM 2.3 mg/dL (0.6-1.3); GLUCOSE 100 mg/dL (74-106); POTASSIUM - SERUM 4.4 mmol/L (3.5-5.1); PROTEIN - SERUM 7.9 g/dL (6.4-8.2); SODIUM 136 mmol/L (136-145); UREA NITROGEN 35 mg/dL (7-18); eGFR NON AFRICAN AMERICAN 22 mL/min (90-120)
[2017-10-12 12:11] LABS: CREATINE KINASE 138 UL (21-215); MAGNESIUM - SERUM 1.9 mg/dL (1.8-2.4); THYROID STIMULATING HORMONE 6.86 uIU/mL (0.36-3.74)
[2017-10-12 12:13] LABS: TROPONIN-I < 0.017 ng/mL (0.000-0.060)
[2017-10-12 12:31] LABS: INR 2.22 (0.85-1.17)
[2017-10-12 12:45] LABS: APPEARANCE HAZY (CLEAR); BACTERIA MODERATE /hpf (NONE SEEN); BILIRUBIN NEGATIVE (NEGATIVE); COLOR YELLOW (YELLOW); EPITHELIAL CELLS OCC /hpf (0-5); GLUCOSE NEGATIVE (NEGATIVE); KETONE NEGATIVE (NEGATIVE); MUCUS <1+ /lpf (NONE SEEN); NITRITE NEGATIVE (NEGATIVE); PROTEIN NEGATIVE (NEGATIVE); RED CELLS - URINE OCC /hpf (0-5); SPECIFIC GRAVITY 1.015 (1.005-1.020)
--- NOTE | 2017-10-12 14:18 | NUR ---
REPORT REC'D FROM SP ZULETA, IN ER. ROOM READY AND AWAITING PT ARRIVAL.
--- NOTE | 2017-10-12 15:00 | NUR ---
PT REC'D TO ROOM VIA STRETCHER. AND ER STAFF AT BEDSIDE. AAOX4. PARKISON TREMOR NOTED TO RUE AND RLE. PIV TO R FA FREE OF REDNESS AND SWELLING. AAOX4. NO COMPLAINTS OF PAIN. LUNG SOUNDS CLEAR AND EQUAL BILAT. REGULAR HEART RATE AND RHYTHM. L CHEST PM NOTED. BOWEL SOUNDS ACTIVE X4 QUADS. BRUISE NOTED TO LLE. PT STATED SHE FELL LAST NIGHT. PT STATES SHE IS FROM [facility]. WILL CALL FOR UPDATED MED LIST. SCD'S APPLIED. BED LOW, CALL LIGHT IN REACH, DENIES NEEDS. CPOC.
--- NOTE | 2017-10-12 15:45 | NUR ---
[facility] TO RECEIVE UP TO DATE MED LIST.
[2017-10-12 16:09] VITALS: BP 118/55
--- NOTE | 2017-10-12 17:30 | NUR ---
ASSESSMENT PER ADMIT FLOW SHEET.PT WITHOUT DISTRESS. AT BEDSIDE ASSISTING WITH MEAL.CALL LIGHT IN REACH.
[2017-10-12 17:41] VITALS: BP 124/66
[2017-10-12 20:00] VITALS: BP 105/53
[2017-10-13] VITALS: BP 94/36
[2017-10-13 04:00] VITALS: BP 120/57
[2017-10-13 05:17] LABS: BASOPHILS 0 % (0-2); EOSINOPHILS 0.5 % (0-7); HEMATOCRIT 27.7 % (36.0-48.0); HEMOGLOBIN 9.3 g/dL (12-16); IMMATURE GRANULOCYTES 0.4 % (0-5); LYMPHOCYTES 14.2 % (15-50); MCH 30.2 pg (26.0-34.0); MCHC 33.6 g/dL (31.0-37.0); MCV 89.9 fL (80.0-100.0); MEAN PLATELET VOLUME 9.6 fL (7.4-10.4); MONOCYTES 14.1 % (2-11); NEUTROPHILS 70.8 % (40-80); PLATELET COUNT 163 10x3/uL (130-400); RBC 3.08 10x6/uL (4.00-5.40); RDW 14.1 % (11.5-14.5)
[2017-10-13 05:19] LABS: WBC 5.6 10x3/uL (4.8-10.8)
--- NOTE | 2017-10-13 05:19 | NUR ---
PUT IN A PAGE TO JOSHUA. PT C/O SEVERE HEADACHE. HAVE TRIED HOT AND COLD PACKS THROUGHOUT THE NIGHT AND ALSO ZOFRAN TO TRY AND RELIEVE THE PAIN WITHOUT SUCCESS.
[2017-10-13 05:32] LABS: ANION GAP 12.1 mmol/L (8-16); CALCIUM 8.8 mg/dL (8.5-10.1); CARBON DIOXIDE 26.7 mmol/L (21.0-32.0); POTASSIUM - SERUM 3.8 mmol/L (3.5-5.1)
[2017-10-13 05:34] LABS: CREATININE - SERUM 1.7 mg/dL (0.6-1.3)
--- NOTE | 2017-10-13 07:00 | NUR ---
REPORT RECIEVED ASSUMED CARE. PATIENT IN BED WITH IV INTACT. NO COMPLAINTS AT THIS TIME. CALL LIGHT WITHIN REACH.
[2017-10-13 08:16] VITALS: BP 127/59
--- NOTE | 2017-10-13 11:30 | NUR ---
PATIENT HAD LARGE BM AFTER SUPPOSITORY. STILL STATING SHE FEELS LIKE SHE NEEDS TO GO MORE. WILL CONTINUE TO MONITOR. CALL LIGHT WITHIN REACH.
[2017-10-13 12:14] VITALS: BP 132/53
--- NOTE | 2017-10-13 12:37 | NUR ---
REHAB PRESCREENING Rehab referral received and chart reviewed. Ms. Kumar is a good candidate for ARU. I will interview patient and begin paper screen if she is agreeable to come. Thank you for this referral! Vanessa Benito, WET PROCESS ASSISTANT [employer] Re[facility]
--- NOTE | 2017-10-13 15:30 | NUR ---
PATIENT HAD ANOTHER BM. STOOL HARD STILL. NO COMPLAINTS AT THIS TIME. FAMILY AT BEDSIDE. CALL LIGHT WITHIN REACH.
[2017-10-13 15:38] VITALS: BP 117/52
--- NOTE | 2017-10-13 18:37 | NUR ---
PATIENT IN BED WITH IV INTACT. NO COMPLAINTS AT THIS TIME. FAMILY AT BEDSIDE. CALL LIGHT WITHIN REACH.
--- NOTE | 2017-10-13 19:49 | NUR ---
PT RESTING QUIETLY IN BED AT THIS TIME. NO COMPLAINTS NOTED. IV RIGHT WRIST INTACT, PATENT LR @ 100. FAMILY AT BEDSIDE. DENIES ANY OTHER NEEDS, WILL CONTINUE WITH PLAN OF CARE.
[2017-10-13 20:00] VITALS: BP 120/51
[2017-10-14] VITALS: BP 141/52
[2017-10-14 04:00] VITALS: BP 147/45
[2017-10-14 05:39] LABS: ALBUMIN 2.5 g/dL (3.4-5.0); ANION GAP 12.7 mmol/L (8-16); BILIRUBIN - TOTAL 0.64 mg/dL (0.2-1.3); CALCIUM 8.2 mg/dL (8.5-10.1); CARBON DIOXIDE 26.1 mmol/L (21.0-32.0); CREATININE - SERUM 1.3 mg/dL (0.6-1.3); POTASSIUM - SERUM 3.8 mmol/L (3.5-5.1); PROTEIN - SERUM 6.3 g/dL (6.4-8.2)
[2017-10-14 05:40] LABS: HEMATOCRIT 30.2 % (36.0-48.0); HEMOGLOBIN 10.7 g/dL (12-16); LYMPHOCYTES 16.9 % (15-50); MCH 31.3 pg (26.0-34.0); MCHC 35.4 g/dL (31.0-37.0); MCV 88.3 fL (80.0-100.0); MEAN PLATELET VOLUME 9.5 fL (7.4-10.4); NEUTROPHILS 70.9 % (40-80); PLATELET COUNT 147 10x3/uL (130-400); RBC 3.42 10x6/uL (4.00-5.40); RDW 13.7 % (11.5-14.5); WBC 6.8 10x3/uL (4.8-10.8)
--- NOTE | 2017-10-14 07:34 | NUR ---
AWAKE AND ALERT. ORIENTED X3. C/O BEING HOT THIS AM. LUNGS ARE CLEAR BILATERALLY, NO COUGH. SKIN IS INTACT WITHOUT REDNESS. IV TO RIGHT HAND PATENT WITHOUT REDNESS AT INSERTION SITE. AT BEDSIDE. DENIES NEEDS.
[2017-10-14 08:55] VITALS: BP 143/61
[2017-10-14] MEDS ORDERED: LIBRAX CAPSULE1 CAP PO (09:42)
[2017-10-14] MEDS ORDERED: COLACE100 MG PO ×2 (09:43→11:09)
[2017-10-14] MEDS ORDERED: ACETAMINOPHEN500 M1 PO (09:43)
[2017-10-14] MEDS ORDERED: ATIVAN0.5 MG PO (09:44)
[2017-10-14] MEDS ORDERED: HYDROCHLOROTHIA25 MG PO (09:44)
[2017-10-14] MEDS ORDERED: ZANTAC150 MG PO (09:45)
[2017-10-14] MEDS ORDERED: SYNTHROID75 MCG PO (09:45)
[2017-10-14] MEDS ORDERED: SINEMET CR 50-1 EACH PO (09:46)
[2017-10-14] MEDS ORDERED: SEROQUEL25 MG PO (09:46)
[2017-10-14] MEDS ORDERED: EFFEXOR37.5 MG PO (09:47)
[2017-10-14 09:51] VITALS: Ht 154.9 cm; Wt 54.4 kg
--- NOTE | 2017-10-14 10:00 | NUR ---
HOME MEDS RECONCILLED WITH [facility].
[2017-10-14] MEDS ORDERED: XOPENEX 1.1.25 MG/3 INH (11:08)
[2017-10-14] MEDS ORDERED: ESGIC TABLET1 TAB PO (11:09)
[2017-10-14] MEDS ORDERED: MIRALAX17 GM PO (11:09)
[2017-10-14] MEDS ORDERED: LEVOXYL100 MCG PO (11:10)
--- NOTE | 2017-10-14 11:16 | NUR ---
Patient Name: CAITLIN ALVAREZ Admission Status: ER Accout number: [id number] Admission Date: 10-13-2017 : 1940 Admission Diagnosis:WEAKNESS Attending: RIK, Current LOS: 1 Anticipated DC Date: Planned Disposition: Inpatient Rehab Primary Insurance: MEDICARE A & B Discharge Planning Comments: CM met with patient and (Neri) to assess discharge planning needs. Patient is a resident at [facility] where she is partially dependent. She sometimes needs helps with bathing and medications. Patient's stated that he would like to get them back to their home. Patient has Parkinson's. She has a shower chair, walker, and cane at home. Patient's plan is to go to inpatient rehab today. CM will continue to follow and assist with discharge planning needs as needed. PCP: Vanda Bacon on [facility] [phone] Patrol Driver: Adilene Lopez * Is the patient Alert and Oriented? Yes 0 * How many steps to enter\exit or inside your home? 0 0 * PCP Vanda 0 * Pharmacy [facility] 0 * Preadmission Environment Home with Family 0 * ADLs Partial Dependent 0 * Partial ADLs (Assistance needed) Bathing 0 * Equipment Cane Shower Chair Walker 0 * List name and contact numbers for known caregivers / representatives who currently or will assist patient after discharge: neri () [phone] * Community resources currently utilized Assisted Living 0 * Please name any agencies selected above. [facility] 0 * Additional services required to return to the preadmission environment? Yes 0 * Can the patient safely return to the preadmission environment? Yes 0 * Has this patient been hospitalized within the prior 30 days at any hospital? No 0 Grand Total: 0
--- NOTE | 2017-10-14 12:42 | NUR ---
ASSISTED WITH BED TAPIA. VOIDED 100CC CLEAR YELLOW URINE. SKIN CARE PER STAFF. REPORT CALLED TO MICHAEL SNOWDEN ON REHAB. ALL QUESTIONS ANSWERED.
[2017-10-14 13:25] VITALS: BP 136/63
--- NOTE | 2017-10-14 13:41 | NUR ---
DISCHARGED TO REHAB ROOM 1113 B VIA . DISCHARGE INSTRUCTIONS GIVEN BOTH VERBALLY AND WRITTEN. ALL QUESTIONS ANSWERED. NO NEW PRESCRIPTIONS AT THIS TIME. REPORT CALLED TO SHERRI IN REHAB. HAD EPISODE OF EMESIS PRIOR TO DISCHARGE. DENIED ANY NAUSEA AT THIS TIME. IV TO RIGHT WRIST AREA D/C WITH CATHETER INTACT.
== END 2017-10-14 13:43 | DRG 682 ==
LOC: D.ER 10:40 → OBSVTIME 13:23 → D.MS 13:23
PROVIDERS: Emergency Medicine; ADMIT Family Medicine
DX: N17.9 Acute kidney failure, unspecified (principal); R53.2 Functional quadriplegia; G20 Parkinson's disease; R53.1 Weakness; E86.0 Dehydration; K59.00 Constipation, unspecified; R06.00 Dyspnea, unspecified; E03.9 Hypothyroidism, unspecified; Z95.0 Presence of cardiac pacemaker; I48.91 Unspecified atrial fibrillation; W19.XXXA Unspecified fall, initial encounter

== ENCOUNTER 2017-10-14 13:47 | Inpatient (IN) | payer MEDICARE, OTHER ==
[~2017-10-14] VITALS: Ht 154.9 cm; Wt 53.5 kg
[~2017-10-14 13:47] MED LIST changes: +ACETAMINOPHEN500 M1 PO; +ATIVAN0.5 MG PO; +COLACE100 MG PO; +EFFEXOR37.5 MG PO; +ESGIC TABLET1 TAB PO; +HYDROCHLOROTHIA25 MG PO; +LEVOXYL100 MCG PO; +LIBRAX CAPSULE1 CAP PO; +MIRALAX17 GM PO; +SEROQUEL25 MG PO; +SINEMET CR 50-1 EACH PO; +SYNTHROID75 MCG PO; +XOPENEX 1.1.25 MG/3 INH; +ZANTAC150 MG PO
--- NOTE | 2017-10-14 14:03 | NUR ---
PATIENT IS ADMITTED TO REHAB FROM ACUTE FLOOR. IS HER PCP. DME AT HOME: SHOWER CHAIR, WALKER AND A CANE. SHE LIVES AT [facility] WITH HER . [facility] IS HER PHARMACY. WILL CONTINUE TO FOLLOW WITH PATIENT.
[2017-10-14 14:09] VITALS: BP 155/73; BMI 22.3
[2017-10-14 19:48] VITALS: BP 121/68
--- NOTE | 2017-10-14 19:48 | NUR ---
RECIEVED UP IN BED WITH EYES OPEN A ND SPOUSE AT BEDSIDE. PLEASANT AND COOPERATIVE. ALERT AND ORIENTED. DENIES ANY PAIN OR NEEDS. CALL LIGHT IN REACH.
[2017-10-14 20:58] VITALS: BP 121/68
--- NOTE | 2017-10-15 03:44 | NUR ---
RESTING IN BED WITH EYES CLOSED. NO S/S OF DISTRESS OBSERVED. CALL LIGHT AND OVERBED TABLE IN REACH. CHECKED AND CHNGED NEEDED.
[2017-10-15 05:34] LABS: BASOPHILS 0 % (0-2); EOSINOPHILS 3.7 % (0-7); HEMATOCRIT 25.9 % (36.0-48.0); HEMOGLOBIN 8.6 g/dL (12-16); IMMATURE GRANULOCYTES 0.4 % (0-5); LYMPHOCYTES 25.5 % (15-50); MCH 29.9 pg (26.0-34.0); MCHC 33.2 g/dL (31.0-37.0); MCV 89.9 fL (80.0-100.0); MEAN PLATELET VOLUME 9.4 fL (7.4-10.4); MONOCYTES 11.4 % (2-11); PLATELET COUNT 145 10x3/uL (130-400); RBC 2.88 10x6/uL (4.00-5.40); RDW 13.9 % (11.5-14.5); WBC 5.5 10x3/uL (4.8-10.8)
[2017-10-15 06:19] LABS: ANION GAP 11.8 mmol/L (8-16); CALCIUM 8.6 mg/dL (8.5-10.1); CARBON DIOXIDE 27.8 mmol/L (21.0-32.0); POTASSIUM - SERUM 3.6 mmol/L (3.5-5.1)
--- NOTE | 2017-10-15 06:37 | NUR ---
C/O SHOULDER PAIN. TYLENOL GIVEN PER ORDERS. PT IN WITH PT AT THIS TIME. CALL LIGHT IN REACH.
--- NOTE | 2017-10-15 08:00 | NUR ---
SITTING UP IN BED EATING BREAKFAST.CL IN REACH.
--- NOTE | 2017-10-15 13:38 | NUR ---
PT RESTING IN BED WITH EYES OPEN AND VISITORS AT BEDSIDE CALL LIGHT IN REACH NO PROBLEMS WILL MONITER
--- NOTE | 2017-10-15 19:50 | NUR ---
FAMILY MEMBERS TALK TO PT IN ROOM.
--- NOTE | 2017-10-15 20:00 | NUR ---
PT. IN BED WITH HOB UP FOR COMFORT AND IS VISITING WITH FEMALE VISITOR. NO VOICED NEEDS AND HER CALL LIGHT IS WITHIN REACH.
[2017-10-15 23:19] VITALS: BP 112/60
--- NOTE | 2017-10-16 00:34 | NUR ---
REST IN BED CALL LIGHT IN REACH.
--- NOTE | 2017-10-16 01:00 | NUR ---
ASSUMED CARE AT THIS TIME. PT. IN BED WITH HOB UP FOR COMFORT WITH EYES CLOSED AND RESP. EVEN. CALL LIGHT WITHIN REACH.
[2017-10-16 08:29] VITALS: BP 120/61
--- NOTE | 2017-10-16 15:20 | NUR ---
FIORICET GIVEN FOR C/O RT UPPER ARM AND RT HIP PAIN.RATED PAIN AN 8.
--- NOTE | 2017-10-16 19:46 | NUR ---
PT. IN BED WITH HOB UP FOR COMFORT WITH EYES CLOSED AND RESP. EVEN. CALL LIGHT WITHIN REACH.
--- NOTE | 2017-10-16 20:05 | NUR ---
TALKS TO PT AT BEDSIDE.
--- NOTE | 2017-10-16 22:05 | NUR ---
ASSISTED PT TO BATHROOM AND BACK TO BED.
[2017-10-16 22:31] VITALS: BP 107/54
--- NOTE | 2017-10-17 01:58 | NUR ---
IN BED, CALL LIGHT IN REACH.
--- NOTE | 2017-10-17 03:52 | NUR ---
REST IN BED, EYE CLOSE, CALL LIGHT IN REACH.
[2017-10-17 04:53] LABS: BASOPHILS 0 % (0-2); HEMOGLOBIN 8.8 g/dL (12-16); IMMATURE GRANULOCYTES 0.4 % (0-5); LYMPHOCYTES 17.5 % (15-50); MCH 29.8 pg (26.0-34.0); MCHC 33.8 g/dL (31.0-37.0); MCV 88.1 fL (80.0-100.0); MEAN PLATELET VOLUME 9.5 fL (7.4-10.4); MONOCYTES 12.3 % (2-11); NEUTROPHILS 67.8 % (40-80); PLATELET COUNT 164 10x3/uL (130-400); RBC 2.95 10x6/uL (4.00-5.40); RDW 13.3 % (11.5-14.5); WBC 5.4 10x3/uL (4.8-10.8)
[2017-10-17 05:25] LABS: ANION GAP 10.2 mmol/L (8-16); CALCIUM 8.1 mg/dL (8.5-10.1); POTASSIUM - SERUM 3.2 mmol/L (3.5-5.1); THYROID STIMULATING HORMONE 2.24 uIU/mL (0.36-3.74)
[2017-10-17 07:59] VITALS: BP 95/46
--- NOTE | 2017-10-17 08:00 | NUR ---
CONFUSED, TALKING IN QUIET VOICE. THINKS HER TISSUE BOX IS HER BOOK. HAS TREMORS TO EXTREMITIES.
--- NOTE | 2017-10-17 12:37 | NUR ---
HAS SETTLED DOWN QUITE A BIT AFTER AM MEDS GIVEN. FENTANYL PATCH APPLIED ORDERED. STILL CONFUSED BUT FOLLOWS COMMANDS.
[2017-10-17 19:26] VITALS: BP 85/37
--- NOTE | 2017-10-17 19:54 | NUR ---
RECIEVED EUN IN BED WITH EYES OPEN AND SPOUSE AT BEDSIDE. SPOUSE VOICES CONCERNS OF PT BEING CONFUSED. ALERT AND ORIENTED TO NAME ONLY. NO TREMORS OBSERVED AT REST. LUNG SOUNDS CLEAR AND BSX4 QUADRANTS. NO EDEMA OBSERVED. PM TO LEFT CHEST. BRUISING TO BOTH ARMS AND HANDS.
--- NOTE | 2017-10-17 23:36 | NUR ---
RESTING IN BED WITH EYES CLOSED. NO S/S OF DISTRESS OBSERVED. ASSISTED TO B/R EARLIER WITH MOD ASSIST. CALL LIGHT AND OVERBED TABLE IN REACH.
--- NOTE | 2017-10-18 04:01 | NUR ---
RESTING IN BED WITH EYES CLSOED. NO S/S OF DISTRESS OBSERVED. CALL LIGHT IN REACH.
--- NOTE | 2017-10-18 04:04 | NUR ---
RESTING IN BED WITH EYES CLSOED. NO S/S OF DISTRESS 0BSERVED. CALL LIGHT IN REACH.
--- NOTE | 2017-10-18 06:35 | NUR ---
ASSISTED PT UP TO B/R. ABLE TO STAND AND TRANSFER. SPOUSE IN EARLY THIS AM AND AT BEDSIDE. TEARFUL D/T WIFES CONFUSION. PT ABLE TO ANSWER SPOUSES QUESTIONS APPROPRIATLY THIS AM. KEEPS HER EYES CLOSED AND ABLE TO REDIRECT HER TO OPEN HER EYES. BRUSHED HER OWN TEETH AND RINSED HER MOUTH. SPOUSE STATES SHE'S MUCH BETTER AND HE WANTS TO SPEAK WITH DR. MONSIVAIS WHEN HE COMES IN. CALL LIGHT IN REACH.
[2017-10-18 08:00] VITALS: BP 104/47
--- NOTE | 2017-10-18 08:00 | NUR ---
EATING BREAKFAST IN ROOM. DENIES NEEDS. CALL LIGHT IN REACH
--- NOTE | 2017-10-18 08:43 | NUR ---
PT RESTING IN BED ALERT BUT DROWSY NOT ORIENTED TO PLACE OR TIME AT BEDSIDE WILL MONITER
[2017-10-18 10:17] VITALS: Ht 154.9 cm; Wt 53.5 kg
--- NOTE | 2017-10-18 15:56 | NUR ---
PT RESTING IN BED WITH EYES OPEN CALL LIGHT IN REACH WILL MONITER
--- NOTE | 2017-10-18 18:34 | NUR ---
PT RESTING IN BED WITH EYES OPEN CALL LIGHT IN REACH NO PROBLEMS WILL MONITER
[2017-10-18 19:35] VITALS: BP 93/40
--- NOTE | 2017-10-18 23:51 | NUR ---
RESTING IN BED WITH EYES CLOSED. N O S/S OF DISTRESS OBSERVED. CALL LIGHT IN REACH.
--- NOTE | 2017-10-19 02:09 | NUR ---
RESTING IN BED WITH EYES CLOSED. N OS/S OF DISTRESS OBSERVED. CALL LIGHT IN REACH.
[2017-10-19 06:15] LABS: BASOPHILS 0 % (0-2); EOSINOPHILS 1.9 % (0-7); HEMATOCRIT 26.2 % (36.0-48.0); HEMOGLOBIN 8.9 g/dL (12-16); IMMATURE GRANULOCYTES 0.6 % (0-5); LYMPHOCYTES 20.5 % (15-50); MCV 88.2 fL (80.0-100.0); MEAN PLATELET VOLUME 9.4 fL (7.4-10.4); MONOCYTES 12.8 % (2-11); NEUTROPHILS 64.2 % (40-80); PLATELET COUNT 173 10x3/uL (130-400); RBC 2.97 10x6/uL (4.00-5.40); RDW 13.6 % (11.5-14.5); WBC 5.2 10x3/uL (4.8-10.8)
[2017-10-19 06:38] LABS: ANION GAP 10.4 mmol/L (8-16); CALCIUM 8.4 mg/dL (8.5-10.1); CARBON DIOXIDE 29.8 mmol/L (21.0-32.0); CREATININE - SERUM 1.2 mg/dL (0.6-1.3); POTASSIUM - SERUM 3.2 mmol/L (3.5-5.1)
[2017-10-19 08:00] VITALS: BP 88/40
--- NOTE | 2017-10-19 08:15 | NUR ---
PT TRANSFERED TO /C FOR BREAKFAST PT FEEDING SELF FINGER FOODS PROBLEMS WITH FINE MOTOR SKILLS DUE TO SHAKING FROM [place] PT ALERT TO PERSON PLACE PT CUED ON KEEPING EYES OPEN PT SAID JUST FEELS BETTER WHEN EYES CLOSED
--- NOTE | 2017-10-19 12:10 | NUR ---
PT UP IN WHEELCHAIR IN ROOM IN ROOM CALL LIGHT IN REACH ASSISTING WITH LUNCH WILL DARIA
--- NOTE | 2017-10-19 15:26 | NUR ---
CARE TEAM MEETING: SPOUSE ATTENDED MEETING. QUESTIONS AND CONCERNS WERE ADDRESSED.TENATIVE DISCHARGE DATE IS 10/27/17. IS CONCERNED REGARDING HER MEDICATIONS. WILL CONTNINUE TO FOLLOW WITH PATIENT.
--- NOTE | 2017-10-19 15:54 | NUR ---
SITTING UP IN WC.CL IN REACH.JUST FINISHED THERAPY.DENISE WELL.
--- NOTE | 2017-10-19 19:27 | NUR ---
PT RESTING IN BED EYES OPEN CALL LIGHT IN REACH WILL MONITER
--- NOTE | 2017-10-19 20:00 | NUR ---
PT. IN BED WITH HOB UP FOR COMFORT WITH EYES CLOSED AND RESP. EVEN. PT. AWAKENS EASILY FOR ASSESSMENT. PT. DENIES ANY NEEDS AT THIS TIME AND HER CALL LIGHT IS WITHIN REACH.
[2017-10-19 20:10] VITALS: BP 100/40
--- NOTE | 2017-10-19 23:23 | NUR ---
Received report from Ce SNOWDEN.
--- NOTE | 2017-10-19 23:50 | NUR ---
PT. IN BED WITH HOB UP FOR COMFORT WITH EYES CLOSED AND RESP. EVEN. CALL LIGHT WITHIN REACH.
--- NOTE | 2017-10-20 00:07 | NUR ---
Patient in bed, 2 side rails up for safety and fior alarm on. Eyes closed, respirations unlabored, deemed to be sleeping. No signs of distress.
--- NOTE | 2017-10-20 02:05 | NUR ---
Continues sleeping, respirations easy and regular, no signs of distress.
--- NOTE | 2017-10-20 04:00 | NUR ---
Lying on left side, respirations unlabored, eyes closed, no signs of distress, deemed to be sleeping.
--- NOTE | 2017-10-20 07:02 | NUR ---
Resting quietly, incontinence care done, no signs of distress at this time.
--- NOTE | 2017-10-20 07:05 | NUR ---
Patient became extremely anxious and attention seeking when arrived, in his presence. Patient is talking about wanting to , hyperventillating, rapid breathing. Encouraged to do deep breathing to relax, emotional support given, was able to slow down breathing with consistent direction. agitated at patient's behavior.
[2017-10-20 08:00] VITALS: BP 92/45
--- NOTE | 2017-10-20 08:21 | NUR ---
SITTING UP IN BED EATING BREAKFAST. DENIES ANY NEEDS OR PAIN. ALERT AND ORIENTED X3. CALL LIGHT WITHIN REACH, BED LOW AND ALARM ON. WILL CONTINUE TO MONITOR
--- NOTE | 2017-10-20 10:40 | NUR ---
LYING IN BED EYES CLOSED RESTING QUIETLY. NO S/SX OF ACUTE DISTRESS. APPROPRIATE RISE AND FALL OF CHEST. CALL LIGHT AND WATER WITHIN REACH. NO FAMILY AT BEDSIDE NOTED. WILL CONTINUE TO MONITOR
--- NOTE | 2017-10-20 11:03 | NUR ---
Nutrition Follow Up: Pt was very anxious at the time of RD visit; nursing giving pt morning meds. Spoke with who stated that pt is not doing well, not eating well. Food preferences provided. Pt is eating 50% meal avg on a regular diet. +BM 10/19/17. Labs reviewed. Meds noted including Megace. Rec continue current diet. Will continue to honor food preferences. Rec continue Megace. RD following.
--- NOTE | 2017-10-20 14:01 | NUR ---
SITTING UP IN W/C VISITING WITH . C/O RIGHT THUMB PAIN, ON VISUAL INSPECTION THUMB APPEARS TO HAVE SOME SWELLING AND DISCOLORATION. XRAY WAS ORDERED. NO OTHER CONCERNS VOICED. CALL LIGHT AND PERSONAL ITEMS WITHIN REACH, W/C BRAKES LOCKED AND ALARM ON. WILL CONTINUE TO MONITOR
--- NOTE | 2017-10-20 15:00 | NUR ---
UP IN BATHROOM WITH OTJOLEEN LOCO.
--- NOTE | 2017-10-20 17:10 | NUR ---
LYING IN BED EYES CLOSED RESTING QUIELTY. AT BEDSIDE. APPROPRIATE RISE AND FALL OF CHEST. NO S/SX OF RESPIRATORY DISTRESS NOTED. CALL LIGHT AND PERSONAL ITEMS WITHIN REACH, BED LOW AND ALARM ON. WILL CONTINUE TO MONITOR
--- NOTE | 2017-10-20 19:10 | NUR ---
RECEIVED REPORT COMPLETE FROM DAY SHIFT NURSE.
--- NOTE | 2017-10-20 19:20 | NUR ---
PATIENT RESTING IN BED ON LEFT SIDE. APPEARS COMFORTABLE. SITTING IN ROOM IN CHAIR.
--- NOTE | 2017-10-20 23:25 | NUR ---
GRADING SUPERVISOR REPORT PT'BP IS 80/49, AND RECHECK PT'S BP IS 116/46.
[2017-10-21 00:12] VITALS: BP 116/46
--- NOTE | 2017-10-21 03:56 | NUR ---
REST QUIETLY IN BED, CALL LIGHT IN REACH.
[2017-10-21 06:36] LABS: BASOPHILS 0 % (0-2); EOSINOPHILS 1.1 % (0-7); HEMATOCRIT 26.4 % (36.0-48.0); IMMATURE GRANULOCYTES 0.5 % (0-5); LYMPHOCYTES 15.7 % (15-50); MCH 30.1 pg (26.0-34.0); MCHC 34.1 g/dL (31.0-37.0); MCV 88.3 fL (80.0-100.0); MEAN PLATELET VOLUME 9.5 fL (7.4-10.4); MONOCYTES 10.2 % (2-11); NEUTROPHILS 72.5 % (40-80); PLATELET COUNT 201 10x3/uL (130-400); RBC 2.99 10x6/uL (4.00-5.40); RDW 13.9 % (11.5-14.5)
[2017-10-21 06:44] LABS: WBC 9.9 10x3/uL (4.8-10.8)
[2017-10-21 06:45] LABS: ANION GAP 11.3 mmol/L (8-16); CALCIUM 8.4 mg/dL (8.5-10.1); CARBON DIOXIDE 26.8 mmol/L (21.0-32.0); CREATININE - SERUM 1.6 mg/dL (0.6-1.3); POTASSIUM - SERUM 4.1 mmol/L (3.5-5.1)
[2017-10-21 08:00] VITALS: BP 100/44
--- NOTE | 2017-10-21 18:44 | NUR ---
PT RESTING IN BED WITH EYES OPEN CALL LIGHT IN REACH WILL MONITER
--- NOTE | 2017-10-21 19:30 | NUR ---
RECIEVED UP IN BED WITH EYES CLOSED. EASILY AROUSES WITH VERBAL STIMULI.KEEPS HER EYES CLOSED. DOES OPEN WHEN ASKED. SPOUSE AT BEDSIDE. CONTINUES TO HAVE POOR APPETITE. SPOUSE TRYING TO GET HER TO EAT WITH SOME SUCCESS. CALL LIGHT AND OVERBED TABLE IN REACH.
--- NOTE | 2017-10-21 23:03 | NUR ---
RESTING IN BED WITH EYES CLOSD. NO S/S OF DISTRESS OBSERVED. RIGHT HAND SWOLLEN AND PURPLE AND BLACK BRUISING TO SITE. ORIENTED TO PERSON AND PLACE ONLY. CONTINENT OF B/B. CALL LIGHT AND OVERBED TABLE IN REACH. SPOUSE AT BEDSIDE.
--- NOTE | 2017-10-22 02:10 | NUR ---
RESTING IN BED WITH EYES CLOSED. NO S/S OF DISTRESS OBSERVED. CALL LIGHT AND OVERBED TABLE IN REACH.
--- NOTE | 2017-10-22 07:35 | NUR ---
LYING IN BED EYES CLOSED RESTING QUIETLY. APPROPRIATE RISE AND FALL OF CHEST. NO S.SX OF RESPIRATORY DISTRESS NOTED. AT BEDSIDE. CALL LIGHT AND WATER WITHIN REACH, BED LOW AND ALARM ON. WILL CONTINUE TO MONITOR
[2017-10-22 09:49] VITALS: BP 100/45
--- NOTE | 2017-10-22 10:57 | NUR ---
IN SHOWER PERFORMING PERSONAL HYGIENE ASSISTED BY ARY RUVALCABA.
--- NOTE | 2017-10-22 13:45 | NUR ---
SITTING UP IN BED EYES CLOSED RESTING QUIETLY. APPROPRIATE RISE AND FALL OF CHEST. NO S/SX OF ACUTE DISTRESS NOTED. CALL LIGHT WITHIN REACH, BED LOW AND ALARM ON. WILL CONTINUE TO MONITOR
--- NOTE | 2017-10-22 15:56 | NUR ---
LYING IN BED EYES CLOSED SPEAKING TO , PT NOT MAKING MUCH SENSE WITH HER WORDS. CALL LIGHT WITHIN REACH, BED LOW AND ALARM ON. WILL CONTINUE TO MONITOR
--- NOTE | 2017-10-22 18:26 | NUR ---
LYING IN BED ON LEFT SIDE EYES CLOSED RESTING. AT BEDSIDE. NO S/SX OF ACUTE DISTRESS NOTED. CALL LIGHT WITHIN REACH, BED LOW AND ALARM ON. WILL CONTINUE TO MONITOR
--- NOTE | 2017-10-22 18:41 | NUR ---
RESTING QUIETLY IN BED. CALL LIGHT IN REACH. BED IN LOWEST POSITION.
--- NOTE | 2017-10-22 19:49 | NUR ---
RECIEVED LAYING IN BED WITH EYES CLOSED AND SPOUSE AT BEDSIDE. NO S/S OF DISTRESS OBSERVED. CALL LIGHT IN REACH.
[2017-10-22 19:53] VITALS: BP 109/44
--- NOTE | 2017-10-23 02:39 | NUR ---
RESTING IN BED WITH EYES CLOSED. NO S/S OF DISTRESS OBSERVED AT THIS TIME. ASSISTED TO TOILET EARLIER AND KEPT SAYING " THIS IS'NT ME. I'M IN SOMEONE ELSES BODY". CONFUSED AND ANXIOUS AT THAT TIME. ATTEMPTS TO REDIRECTM UNSUCESSFUL. CALL LIGHT AND OVERBED TABLE IN REACH.
[2017-10-23 08:43] VITALS: BP 98/41
--- NOTE | 2017-10-23 09:01 | NUR ---
PT AM MEDS ADMINISTERED. PT DENIES NEEDS. WCTM.
--- NOTE | 2017-10-23 18:23 | NUR ---
PT TREMORS HAVE LASTED ALL DAY WITHOUT MUCH RELIEF. PT IS EATING LESS THAN 25% OF MEALS. WHEN TRYING TO GET PT TO EAT SHE INSISTS THAT WE "JUST LEAVE HER ALONE."
[2017-10-23 19:46] VITALS: BP 118/58
--- NOTE | 2017-10-23 19:46 | NUR ---
RECIEVED UP IN BED WITH EYES CLOSED. EASILY AROUSES WITH VERBAL STIMULI. ASSISTED TO B/R PER PT REQUEST. CLOTHS WET D/T EXCESSIVE DIAPHORISES. SHHOWER GIVEN AND ASSISTED BACK TO BED.
--- NOTE | 2017-10-24 00:39 | NUR ---
RESTING IN BED WITH EYES CLOSED. NO S/S OF DISTRESS OBSERVED. CALL LIGHT IN REACH.
--- NOTE | 2017-10-24 02:48 | NUR ---
RESTING IN BED WITH EYES CLOSED. NO S/S OF DISTRESS OBSERVED. CALL LIGHT IN REACH.
--- NOTE | 2017-10-24 06:19 | NUR ---
PT RESTING IN BED WITH EYES CLOSED. AWOKE EASILY TO VERBAL STIMULI. TOLERATED AM MEDS WITHOUT DIFFICULTY.
[2017-10-24 07:19] LABS: BASOPHILS 0 % (0-2); EOSINOPHILS 0.9 % (0-7); HEMATOCRIT 25.3 % (36.0-48.0); HEMOGLOBIN 8.5 g/dL (12-16); IMMATURE GRANULOCYTES 0.5 % (0-5); LYMPHOCYTES 11.7 % (15-50); MCH 29.8 pg (26.0-34.0); MCHC 33.6 g/dL (31.0-37.0); MCV 88.8 fL (80.0-100.0); MEAN PLATELET VOLUME 9.3 fL (7.4-10.4); MONOCYTES 9.2 % (2-11); NEUTROPHILS 77.7 % (40-80); RBC 2.85 10x6/uL (4.00-5.40); RDW 13.9 % (11.5-14.5); WBC 9.1 10x3/uL (4.8-10.8)
[2017-10-24 07:23] LABS: PLATELET COUNT 248 10x3/uL (130-400)
--- NOTE | 2017-10-24 07:54 | NUR ---
RESTING QUIETLY IN BED. CALL LIGHT IN REACH. BED IN LOWEST POSITION.
[2017-10-24 08:00] VITALS: BP 97/52
--- NOTE | 2017-10-24 08:00 | NUR ---
PATIENT IS VERY CONFUSED TODAY. BREAKFAST SET UP. FOOD CUT AND CARTONS OPENED. THIS NURSE TRIED TO FEED PATIENT. PATIENT WOULD ONLY TAKE ONE BITE OF PANCAKES, THEN STATED NO MORE. ABLE TO GET PATIENT TO DRINK ABOUT HALF OF BOOST SUPPLIMENT
--- NOTE | 2017-10-24 10:30 | NUR ---
PATIENT DOWN IN REHAB ROOM. WORKING WITH PHYSICAL THERAPIST. PRN TYLENOL GIVEN EARLIER FOR PAIN/DISC.
--- NOTE | 2017-10-24 17:15 | NUR ---
IN ROOM WITH PATIENT. PATIENT REFUSED TO EAT FOR . THIS NURSE FEED PATIENT A FEW BITES OF SUPPER BEFORE PATIENT REFUSED. BOOST SUPPLIMENT GIVEN
--- NOTE | 2017-10-24 19:08 | NUR ---
PT. IN BED WITH HOB UP FOR COMFORT WITH EYES CLOSED AND RESP. EVEN. CALL LIGHT WITHIN REACH. SPOUSE HAS ALREADY LEFT FOR THE EVENING.
[2017-10-24 21:07] VITALS: BP 111/49
--- NOTE | 2017-10-24 22:17 | NUR ---
PT IS RESTING IN BED WITH EYES CLOSED. ALL BLANKETS OFF PT. PT AWOKE EASILY TO VERBAL STIMULIL. SHE STATED SHE WAS HOT AND DIDNT NEED THEM BLANKENT. NO ACUTE DISTRESS NOTED. PT IS MORE TALKATIVE THAN SHE HAS BEEN THE LAST COUPLE OF DAYS. EDEMA AND REDNESS TO RIGHT FOREARM AND HAND HAVE DECREASED SIGNIFICANTLY SINCE YESTERDAY ALSO. SR'S ARE UP X 3 IN BED. CALL LIGHT AND BEDSIDE TABLE ARE WITHIN EASY REACH.
--- NOTE | 2017-10-25 02:42 | NUR ---
PT ASSISTED TO THE BATHROOM WITH MAX ASSIST. VOIDED WITHOUT DIFFICULTY. NO ACUTE DISTRESS NOTED.
--- NOTE | 2017-10-25 06:23 | NUR ---
PT ASSISTED TO THE BATHROOM WITH MAX ASSIST. VOIDED WITHOUT DIFFICULTY. NO FURTHER NEEDS VOICED.
--- NOTE | 2017-10-25 08:00 | NUR ---
SHIFT ASSMT COMPLETED.REMAINS CONFUSED.SHAKING IF ATTEMPTS TO USE HANDS.REQUIERS BEING FED.
[2017-10-25 08:42] VITALS: BP 98/46
--- NOTE | 2017-10-25 09:05 | NUR ---
CONFUSED.ASSISTED OOB TO WC TO BATHROOM.NO VOID OR BM NOTED.PLACED BACK IN WC WITH ASSIST X2.CONTINUES TO HAVE TREMORS TO HANDS BILAT.UNABLE TO FEED SELF.CHEWS AND BITES UTENSILS DURING FEEDING.RT ARM WITH SLIGHT SWELLING.NOTED.XRAY RESULTS HAD SHOWED NO FX'S.UNABLE TO FOLLOW THROUGH WITH SIMPLE COMMANDS.CL IN REACH. AT BEDSIDE.
--- NOTE | 2017-10-25 11:04 | NUR ---
Nutrition Follow Up: Pt was asleep at the time of RD visit. Spoke with pt's who reported that pt has not been eating much but has been drinking Boost. Pt is eating 28% meal avg on a regular diet. She is receiving Boost TID. +BM 10/25/17. Labs reviewed. Meds noted including Megace. Rec continue current diet, supplement regimen. Rec continue appetite stimulant. Rec weighing pt if possible. RD following.
--- NOTE | 2017-10-25 11:51 | NUR ---
CITLALLI SENT FOR AN OK TO GO TO [facility]. WILL CONTINUE TO FOLLOW WITH PATIENT.
--- NOTE | 2017-10-25 12:00 | NUR ---
UP OOB FOR MEAL.CL IN REACH.
[2017-10-25 19:30] VITALS: BP 99/44
--- NOTE | 2017-10-25 20:30 | NUR ---
PT IN BED WITH HOB UP FOR COMFORT. RESTING QUIETLY. PT DC TO [facility] TOMORROW. PACEMAKER. NO O2. NO IV. GIOVANNA ALARM ON. BED IN LOWEST POSITION AND CALL LIGHT WITHIN REACH.
--- NOTE | 2017-10-25 21:38 | NUR ---
"PT VOMITED SMALL AMOUNT OF THICK YELLOWISH EMESIS." STATED TO ME ZUHAIR TOVAR RN.
--- NOTE | 2017-10-25 21:39 | NUR ---
PT BEDDING CHANGED AND CLEANED UP.
[2017-10-26] VITALS (10 sets, daily range): BP systolic 94–109; BP diastolic 35–52
--- NOTE | 2017-10-26 01:40 | NUR ---
RESTING QUIETLY IN BED, SLIGHTLY RIGHT SIDELYING. HOB UP 30 DEGREES. NO EVIDENT DISTRESS.
--- NOTE | 2017-10-26 05:30 | NUR ---
ASSISTED PT TO BATHROOM. PT WAS UNABLE TO VOID AFTER 35 MINUTES OF SITTING ON TOILET. ASSISTED PT BACK TO BED.
[2017-10-26 06:44] LABS: BASOPHILS 0 % (0-2); HEMATOCRIT 25.8 % (36.0-48.0); HEMOGLOBIN 8.7 g/dL (12-16); IMMATURE GRANULOCYTES 1.3 % (0-5); LYMPHOCYTES 16.8 % (15-50); MCHC 33.7 g/dL (31.0-37.0); MEAN PLATELET VOLUME 9.3 fL (7.4-10.4); MONOCYTES 9.6 % (2-11); NEUTROPHILS 71.3 % (40-80); PLATELET COUNT 258 10x3/uL (130-400); RDW 14.1 % (11.5-14.5); WBC 8.2 10x3/uL (4.8-10.8)
[2017-10-26 07:06] LABS: ANION GAP 15.3 mmol/L (8-16); CALCIUM 8.7 mg/dL (8.5-10.1); CARBON DIOXIDE 21.6 mmol/L (21.0-32.0); CREATININE - SERUM 1.7 mg/dL (0.6-1.3); POTASSIUM - SERUM 4.9 mmol/L (3.5-5.1)
--- NOTE | 2017-10-26 08:00 | NUR ---
SHIFT ASSMT COMPLETED.REMAINS CONFUSED,KEEPS EYES CLOSED MOST OF THE TIME.WILL FOLLOW SIMPLE DIRECTIONS EX:OPEN YOUR EYES;SOMETIMES SHE WILL;SOMETIMES SHE WON'T.AT TIMES NOTED HOLDING FOOD IN MOUTH;REQUIRES BEING CUED TO SWALLOW OR OPEN MOUTH.BREAKFAST GIVEN.FEEDER NOTED.
[2017-10-26] MEDS ORDERED: MEGACE400 MG/10 PO (08:50)
[2017-10-26] MEDS ORDERED: DURAGESIC1 PATCH .7 TRANSDERM (08:51)
[2017-10-26] MEDS ORDERED: SEROQUEL25 MG PO (08:51)
[2017-10-26] MEDS ORDERED: KLONOPIN0.5 MG PO (08:52)
--- NOTE | 2017-10-26 08:53 | RHP ---
PATIENT: CAITLIN ALVAREZ MEDICAL RECORD: [id number] ACCOUNT: [id number] [facility] AD[facility] DATE: 10/14/17 REHABILITATION HISTORY AND PHYSICAL EXAMINATION POST ADMISSION PHYSICIAN EXAMINATION POST-ADMISSION PHYSICAL EXAMINATION AND HISTORY AND PHYSICAL ADMITTING DIAGNOSIS: Parkinson's. HISTORY OF PRESENT ILLNESS: The patient is a 77-year-old female patient admitted to the rehab under neurologic condition of Parkinson's. She currently lives with her spouse at [facility]. She presented to the ED on 10/12 with a several-day history of acute shortness of breath, cough with productive sputum, fever, chills, sweats, constipation, abdominal pain, weakness, falls, and tremors. Past medical history significant for Parkinson's, hypothyroidism, AFib. She has no history of alcohol, tobacco, or illicit drug use. She was admitted for the above with electrolyte protocol, Protonix, serial compression devices to her extremities, blood cultures, urine culture, telemetry, strict I and O, daily weights, updrafts. She has had PT, OT, speech therapy, and case management. She has been on fall precautions. The rehab consult was done. She has been following her KUB and bowel regimen. Her KUB showed a large colonic stool, otherwise there were no acute findings. She stated that she has had no appetite and has to force herself to eat. She has lost 12 pounds within the last month. She has been very shaky and has weakness secondary to her Parkinson's, will make difficult for her to eat and has caused her to have multiple falls. Prior to this illness, she was moderately independent with ambulation, moderately independent to minimal assist with ADLs. She will require intensive therapy to get back to her prior level of functioning. Comorbidities include hypothyroidism, pacemaker placement, AFib, functional quadriplegia, abdominal pain, dehydration, kidney injury, constipation, cough, and acute dyspnea. PAST MEDICAL HISTORY: Significant for Parkinson's, cataracts, thyroid problems, AFib. PAST SURGICAL HISTORY: Includes hysterectomy and pacemaker placement. ALLERGIES: CODEINE. CURRENT MEDICATIONS: She is on Effexor 75 mg daily, Protonix 40 mg daily, Synthroid 100 mcg daily. She is on hydrochlorothiazide 25 mg daily, trazodone 50 mg at bedtime, Pepcid 20 mg b.i.d., Seroquel 25 mg at bedtime, Mirapex 0.25 mg t.i.d., polyethylene glycol 17 grams in 8 ounces of water daily, Xopenex 1.25 mg every 8 hours p.r.n., Colace 100 mg b.i.d., Cardizem 60 mg t.i.d., Librax as needed for abdominal pain. She is on Sinemet 25/100 one tab 6 times daily, she is on the 50/200 one tab at bedtime. She is on Fioricet as needed for headache. Eliquis 5 mg b.i.d., Cordarone 200 mg b.i.d., Tylenol 650 mg every 6 hours p.r.n. HABITS: No alcohol or tobacco use. FAMILY HISTORY: Noncontributory. SOCIAL HISTORY: The patient hopes to return back home with her , who is HISTORY AND PHYSICAL [id number] CAITLIN ALVAREZ her main caregiver. REVIEW OF SYSTEMS: GENERAL: Does complain of little weakness and fatigue. HEENT: Denies cold, cough, or congestion. CARDIOVASCULAR: Denies chest pain. PHYSICAL EXAMINATION: VITAL SIGNS: Stable, afebrile. GENERAL: A well-developed female, in no acute distress on exam. HEENT: Normocephalic and atraumatic. Mucosa moist. NECK: Supple. No lymphadenopathy. LUNGS: Clear at this time. HEART: Irregular rate and rhythm. ABDOMEN: Benign. EXTREMITIES: No clubbing, cyanosis or edema. NEUROLOGIC: Consistent with Parkinson's. She has got a pill rolling tremor. Does have a little bit of a flat affect, but she is appropriate. LABORATORY DATA: White count is 5.5, H&H of 8.6 and 25.9, and platelet count was noted to be 145. Her sodium is 138, potassium 3.6, BUN and creatinine of 16 and 1.0, and blood sugar was noted to be 80. ASSESSMENT: This is a 77-year-old female patient admitted to rehab with a working diagnosis of Parkinson's. The patient has potential to make improvement. We will institute the following multidisciplinary therapies including, but not limited to, physical, occupational, respiratory, speech, nutritional services, prosthetics and orthotics. Given her complex condition and risk for more complications, rehabilitation services cannot be provided at a low level of care such as a prison facility. PLAN: 1. Admit to [facility] rehab for intensive inpatient therapy to include the following disciplines: A. Physical therapy to improve gait, all transfer skills and bed mobility to a modified independent level. B. Occupational therapy to improve activities of daily living to a modified independent level. C. Case management to assist with discharge planning and placement options. D. Nutrition to assist with nutritional needs. E. Rehabilitation nursing to assist in monitoring the patient's underlying medical conditions and to assist with any type of bowel or bladder management. 2. The patient's current medication and medical care will be continued. 3. The patient will be placed on standard fall precautions. 4. The patient's estimated length of stay is approximately 7-10 days. 5. Discuss this patient during care team staff meeting this week. TRANSINT:[id number] Voice Confirmation ID: [id number] DOCUMENT ID: [id number] ANCA notes whether there has been none or any medical/functional change since admission: - No change since pre-admission screen. HISTORY AND PHYSICAL [id number] CAITLIN ALVAREZ attests patient continues to be appropriate for IRF: - Continues to be appropriate. KAVITA MONSIVAIS MD at 0853 CC: [id number] DICTATION DATE: 10/15/17 1146 INTERNATIONAL SALES MANAGER: 10/15/17 1357 ADM IN [address] [address]
--- NOTE | 2017-10-26 10:58 | NUR ---
PATIENT HAS BEEN ACCEPTED TO [facility] AND WILL DISCHARGE THERE ON 10/27/17 VIA F[facility]ILITY [facility]. FAMILY HAS BEEN NOTIFIED.
--- NOTE | 2017-10-26 12:00 | NUR ---
MEAL SET UP FOR LUNCH GIVEN.FAMILY ASSISTING.
--- NOTE | 2017-10-26 16:56 | NUR ---
STARTED IV LT AC 22G X1 ATTEMP. FLUSHES AND DRAWS WITHOUT DIFFICULTY. DRESSING C/D/I.
--- NOTE | 2017-10-26 19:00 | NUR ---
GAVE PATIENT'S MENU TO HER TO COMPLETE FOR TOMORROW'S LUNCH IN CASE MRS. ALVAREZ DOSE NOT DISCHARGE PRIOR TO THAT TIME. UNIT OF PRBC'S INFUSING PER PUMP VIA LEFT AC S/L AT 130 ML/HR RATE.
--- NOTE | 2017-10-26 20:15 | NUR ---
PT IN BED WITH HOB UP FOR COMFORT. RESTING QUIETLY. LEFT AC INFUSING PRBC'S @ 130ML/HR. VITALS TAKEN. NO O2. PACEMAKER. BED IN LOWEST POSITION AND CALL LIGHT WITHIN REACH.
--- NOTE | 2017-10-26 21:24 | NUR ---
PRBC'S DONE INFUSING.
--- NOTE | 2017-10-27 01:20 | NUR ---
PT LYING IN BED. EYES CLSOED. CHEST RISING AND FALLING. BED IN LOWEST POSITON AND CALL LIGHT WITHIN REACH.
--- NOTE | 2017-10-27 05:17 | NUR ---
PT LYING IN BED. EYES CLOSED. RESPIRATIONS ARE EVEN AND UNLABORED. BED IN LOWEST POSITION AND CALL LIGHT WITHIN REACH.
[2017-10-27 06:56] LABS: BASOPHILS 0 % (0-2); EOSINOPHILS 1.2 % (0-7); HEMATOCRIT 30.5 % (36.0-48.0); HEMOGLOBIN 10.3 g/dL (12-16); IMMATURE GRANULOCYTES 1.3 % (0-5); LYMPHOCYTES 9.6 % (15-50); MCH 28.9 pg (26.0-34.0); MCHC 33.8 g/dL (31.0-37.0); MEAN PLATELET VOLUME 8.9 fL (7.4-10.4); MONOCYTES 7.4 % (2-11); NEUTROPHILS 80.5 % (40-80); PLATELET COUNT 254 10x3/uL (130-400); RDW 16.4 % (11.5-14.5); WBC 8.4 10x3/uL (4.8-10.8)
[2017-10-27 07:03] LABS: MCV 85.4 fL (80.0-100.0); RBC 3.57 10x6/uL (4.00-5.40)
[2017-10-27 07:22] LABS: ANION GAP 14.7 mmol/L (8-16); CALCIUM 8.3 mg/dL (8.5-10.1); CARBON DIOXIDE 22.4 mmol/L (21.0-32.0); CREATININE - SERUM 1.6 mg/dL (0.6-1.3); POTASSIUM - SERUM 5.1 mmol/L (3.5-5.1)
--- NOTE | 2017-10-27 07:31 | NUR ---
RESTING QUIETLY IN BED. CALL LIGHT IN REACH. BED IN LOWEST POSITION.
[2017-10-27 08:08] VITALS: BP 109/56
--- NOTE | 2017-10-27 09:39 | NUR ---
PATIENT DISCHARGING TO [facility]. FAMILY AT BEDSIDE. NO HOME HEALTH OR DME NEEDED AT THIS TIME. AN APPOINTMENT WITH DR. MOSQUERA WILL BE MADE AT TIME OF DISCHARGE FROM FACILITY. PATIENT CHOICE FORM FOR SNF AND [facility] FORM SIGNED, EXPLAINED AND FILED IN CHART.
--- NOTE | 2017-10-27 10:00 | NUR ---
D/C IN W/C TO [facility]. PACKED ALL PER PERSONAL BELONGS.
== END 2017-10-27 13:50 | DRG 56 ==
LOC: D.REHAB 13:47
PROVIDERS: ADMIT Emergency Medicine
DX: G20 Parkinson's disease (principal); R53.2 Functional quadriplegia; S37.009A Unspecified injury of unspecified kidney, initial encounter; N17.9 Acute kidney failure, unspecified; E03.9 Hypothyroidism, unspecified; Z95.0 Presence of cardiac pacemaker; I48.91 Unspecified atrial fibrillation; R10.9 Unspecified abdominal pain; E86.0 Dehydration; K59.00 Constipation, unspecified; R05 Cough; R06.00 Dyspnea, unspecified

== ENCOUNTER 2017-11-04 10:05 | Inpatient (IN) | payer MEDICARE, OTHER ==
[~2017-11-04] VITALS: Ht 154.9 cm; Wt 49.9 kg
--- NOTE | ~2017-11-04 | CN ---
PATIENT NAME:CAITLIN KUMAR MEDICAL RECORD: [id number] : 44 LOCATION:[facility] D.[id number] ADMIT DATE: 11/04/17 ACCOUNT: [id number] CONSULTING PHYSICIAN: VISHAL LARSEN MD REFERRING PHYSICIAN: NAOMI DANIELS MD DATE OF CONSULTATION: 11/05/2017 CONSULT REQUESTING PHYSICIAN: Naomi Daniels MD REASON FOR CONSULTATION: Flu, possible pneumonia. HISTORY OF PRESENT ILLNESS: Ms. Kumar is a 77-year-old female who has a history of Parkinson disease. The patient was in [facility]. She was noted to have fever of 104 and mental status change and the patient was unresponsive. The patient was admitted by Dr. Mosquera to the hospital. The patient is unresponsive and the is a very poor historian. There are no associated nausea, vomiting. No diarrhea. REVIEW OF SYSTEMS: Mainly in the history of present illness. PAST MEDICAL HISTORY: 1. Parkinson disease. 2. Hypothyroidism. 3. Anxiety, depression. 4. She is status post pacemaker placement with history of atrial fibrillation. PAST SURGICAL HISTORY: 1. Hysterectomy. 2. Pacemaker placement. ALLERGIES: She is allergic to CODEINE. MEDICATIONS: She is on Levaquin IV, Tamiflu. Her other medication is reviewed. PERSONAL AND SOCIAL HISTORY: The patient now [facility] resident. She is a nonsmoker, nondrinker. FAMILY HISTORY: Noncontributory. PHYSICAL EXAMINATION: GENERAL: Now, the patient is lying comfortable in bed. She is not in acute distress. The patient is unresponsive. VITAL SIGNS: The blood pressure is 101/47, pulse is 81, respirations 28, temperature 99.1, SpO2 of 96% on room air. HEENT: Conjunctivae pink. Sclerae nonicteric. NECK: Neck is supple. No JVD. CHEST: The chest excursion is minimal on both sides. There are bibasilar crackles. No wheezing. HEART: Rate and rhythm regular, normal sound, no murmur. ABDOMEN: Abdomen is soft. Bowel sounds present. No hepatosplenomegaly. RECTAL: Deferred. EXTREMITIES: No cyanosis, no clubbing, no pedal edema. SKIN: The skin is warm, normal turgor. CENTRAL NERVOUS SYSTEM: There is no obvious cranial nerve abnormality. The patient is totally unresponsive. CONSULT REPORT [id number] HAND,CAITLIN L LABORATORY DATA: CBC with WBC 12.7, hemoglobin 11.9, hematocrit 36.4, and the platelet count 260. The neutrophils are 82.6%. Chemistry: Sodium is 145, potassium is 3, BUN is 98, and creatinine 3.2. AST is 148 and ALT is 246. IMPRESSION: 1. Acute mental status changes, possible secondary to metabolic encephalopathy with associated renal failure, possibly associated with infection and sepsis. 2. Febrile illness, most likely secondary to flu. The patient is positive for influenza A. 3. Leukocytosis. 4. Hypernatremia. 5. Hypokalemia, most likely secondary to dehydration. 6. Chronic kidney disease, renal failure. RECOMMENDATION: 1. Agree with IV fluid. I will add Rocephin. Continue Levaquin. Continue Tamiflu. 2. CT scan of the head. Dr. Lawson was consulted for nephrology. Followup labs and chest radiograph. Dr. Daniels thank you for involving me in the care of Ms. Kumar. TRANSINT:[id number] Voice Confirmation ID: [id number] DOCUMENT ID: [id number] VISHAL LARSEN MD at 1406 CC: CAITY MOSQUERA MD [id number] DICTATION DATE: 11/05/17 1426 AIRPLANE TESTER: 11/05/17 1526 ADM IN [place] [id number] [place] [address]
[~2017-11-04 10:05] MED LIST changes: +DURAGESIC1 PATCH .7 TRANSDERM; +KLONOPIN0.5 MG PO; +MEGACE400 MG/10 PO
[2017-11-04 10:37] LABS: BASOPHILS 0.1 % (0-2); EOSINOPHILS 0 % (0-7); HEMATOCRIT 36.4 % (36.0-48.0); HEMOGLOBIN 11.9 g/dL (12-16); IMMATURE GRANULOCYTES 0.5 % (0-5); LYMPHOCYTES 10.7 % (15-50); MCH 28.9 pg (26.0-34.0); MCHC 32.7 g/dL (31.0-37.0); MCV 88.3 fL (80.0-100.0); MEAN PLATELET VOLUME 10.6 fL (7.4-10.4); MONOCYTES 6.1 % (2-11); NEUTROPHILS 82.6 % (40-80); PLATELET COUNT 260 10x3/uL (130-400); RBC 4.12 10x6/uL (4.00-5.40); RDW 16.6 % (11.5-14.5); WBC 12.7 10x3/uL (4.8-10.8)
[2017-11-04 10:51] LABS: APPEARANCE CLOUDY (CLEAR); BILIRUBIN NEGATIVE (NEGATIVE); COLOR YELLOW (YELLOW); GLUCOSE NEGATIVE (NEGATIVE); KETONE NEGATIVE (NEGATIVE); NITRITE NEGATIVE (NEGATIVE); PROTEIN NEGATIVE (NEGATIVE); SPECIFIC GRAVITY 1.015 (1.005-1.020); UROBILINOGEN NORMAL (NORMAL); WHITE CELLS - URINE 0-5 /hpf (0-5)
[2017-11-04 10:52] LABS: EPITHELIAL CELLS 0-5 /hpf (0-5); MUCUS <1+ /lpf (NONE SEEN); RED CELLS - URINE >50 /hpf (0-5)
[2017-11-04 10:54] LABS: BACTERIA MANY /hpf (NONE SEEN)
[2017-11-04 10:55] LABS: ALBUMIN 2.3 g/dL (3.4-5.0); ANION GAP 14.6 mmol/L (8-16); BILIRUBIN - TOTAL 0.68 mg/dL (0.2-1.3); CARBON DIOXIDE 23.6 mmol/L (21.0-32.0); CREATININE - SERUM 4.1 mg/dL (0.6-1.3); POTASSIUM - SERUM 3.2 mmol/L (3.5-5.1); PROTEIN - SERUM 6.4 g/dL (6.4-8.2)
[2017-11-04 16:01] LABS: ANION GAP 15.5 mmol/L (8-16); CALCIUM 8.2 mg/dL (8.5-10.1); CARBON DIOXIDE 21.8 mmol/L (21.0-32.0); CREATININE - SERUM 3.9 mg/dL (0.6-1.3); POTASSIUM - SERUM 3.3 mmol/L (3.5-5.1)
[2017-11-04 19:41] VITALS: BP 108/55; BMI 20.8
[2017-11-04] MEDS ORDERED: AUGMENTIN 875-11 TAB PO (23:26)
[2017-11-04] MEDS ORDERED: HYDROCODON-ACE1 EAC7 PO (23:30)
[2017-11-04] MEDS ORDERED: TAMIFLU75 MG PO (23:33)
[2017-11-05] VITALS: BP 106/59
[2017-11-05 04:00] VITALS: BP 108/48
[2017-11-05 06:46] LABS: BASOPHILS 0 % (0-2); EOSINOPHILS 0.1 % (0-7); HEMATOCRIT 32.4 % (36.0-48.0); HEMOGLOBIN 10.6 g/dL (12-16); IMMATURE GRANULOCYTES 0.5 % (0-5); LYMPHOCYTES 10.9 % (15-50); MCH 28.6 pg (26.0-34.0); MCHC 32.7 g/dL (31.0-37.0); MCV 87.3 fL (80.0-100.0); MEAN PLATELET VOLUME 11.1 fL (7.4-10.4); MONOCYTES 5.4 % (2-11); NEUTROPHILS 83.1 % (40-80); PLATELET COUNT 246 10x3/uL (130-400); RBC 3.71 10x6/uL (4.00-5.40); RDW 16.3 % (11.5-14.5); WBC 11.8 10x3/uL (4.8-10.8)
[2017-11-05 07:14] LABS: ALBUMIN 2.1 g/dL (3.4-5.0); BILIRUBIN - TOTAL 0.78 mg/dL (0.2-1.3); CALCIUM 8.1 mg/dL (8.5-10.1); CARBON DIOXIDE 21.2 mmol/L (21.0-32.0); CREATININE - SERUM 3.2 mg/dL (0.6-1.3); MAGNESIUM - SERUM 2.5 mg/dL (1.8-2.4); PROTEIN - SERUM 6.2 g/dL (6.4-8.2)
[2017-11-05 07:19] LABS: ANION GAP 15.8 mmol/L (8-16)
[2017-11-05 07:51] VITALS: BP 105/48
[2017-11-05 11:12] VITALS: BP 101/47
[2017-11-05 13:09] LABS: CALCIUM 8.1 mg/dL (8.5-10.1); CARBON DIOXIDE 20.1 mmol/L (21.0-32.0); CREATININE - SERUM 3.3 mg/dL (0.6-1.3); MAGNESIUM - SERUM 2.4 mg/dL (1.8-2.4); PHOSPHOROUS 3.2 mg/dL (2.5-4.9)
[2017-11-05 13:22] LABS: ANION GAP 14.9 mmol/L (8-16)
[2017-11-05 15:28] VITALS: BP 109/47
[2017-11-05 18:15] LABS: ANION GAP 16.3 mmol/L (8-16); CALCIUM 8.3 mg/dL (8.5-10.1); CARBON DIOXIDE 19.9 mmol/L (21.0-32.0); CREATININE - SERUM 3.2 mg/dL (0.6-1.3); POTASSIUM - SERUM 3.2 mmol/L (3.5-5.1)
[2017-11-05 19:00] VITALS: BP 125/50
[2017-11-06] VITALS: BP 109/52
[2017-11-06 04:00] VITALS: BP 115/56
[2017-11-06 05:02] LABS: BASOPHILS 0.1 % (0-2); EOSINOPHILS 0.2 % (0-7); HEMOGLOBIN 10.4 g/dL (12-16); IMMATURE GRANULOCYTES 0.9 % (0-5); LYMPHOCYTES 14.6 % (15-50); MCH 28.4 pg (26.0-34.0); MCHC 32.5 g/dL (31.0-37.0); MCV 87.4 fL (80.0-100.0); MEAN PLATELET VOLUME 11.2 fL (7.4-10.4); MONOCYTES 6.4 % (2-11); NEUTROPHILS 77.8 % (40-80); PLATELET COUNT 252 10x3/uL (130-400); RBC 3.66 10x6/uL (4.00-5.40); RDW 16.4 % (11.5-14.5); WBC 10.8 10x3/uL (4.8-10.8)
[2017-11-06 05:36] LABS: ALBUMIN 2.1 g/dL (3.4-5.0); ANION GAP 13.9 mmol/L (8-16); BILIRUBIN - TOTAL 0.79 mg/dL (0.2-1.3); CALCIUM 8.2 mg/dL (8.5-10.1); CARBON DIOXIDE 20.6 mmol/L (21.0-32.0); CREATININE - SERUM 2.6 mg/dL (0.6-1.3); PHOSPHOROUS 2.5 mg/dL (2.5-4.9); POTASSIUM - SERUM 3.5 mmol/L (3.5-5.1); PROTEIN - SERUM 6.3 g/dL (6.4-8.2); THYROID STIMULATING HORMONE 8.45 uIU/mL (0.36-3.74)
[2017-11-06 07:35] VITALS: BP 115/50
[2017-11-06 09:28] VITALS: Ht 154.9 cm; Wt 49.9 kg
[2017-11-06 11:55] VITALS: BP 118/51
[2017-11-06 15:09] VITALS: BP 117/49
[2017-11-06 16:08] LABS: CALCIUM 8.1 mg/dL (8.5-10.1); CARBON DIOXIDE 20.8 mmol/L (21.0-32.0); CREATININE - SERUM 2.4 mg/dL (0.6-1.3)
[2017-11-06 16:10] LABS: ANION GAP 14.3 mmol/L (8-16); POTASSIUM - SERUM 4.1 mmol/L (3.5-5.1)
[2017-11-06 20:36] VITALS: BP 119/52
[2017-11-07 01:20] VITALS: BP 128/53
[2017-11-07 05:31] VITALS: BP 120/56
[2017-11-07 06:47] LABS: BASOPHILS 0 % (0-2); EOSINOPHILS 0.4 % (0-7); HEMATOCRIT 31.5 % (36.0-48.0); HEMOGLOBIN 10.2 g/dL (12-16); IMMATURE GRANULOCYTES 1.1 % (0-5); LYMPHOCYTES 16.2 % (15-50); MCH 28.3 pg (26.0-34.0); MCHC 32.4 g/dL (31.0-37.0); MCV 87.5 fL (80.0-100.0); MEAN PLATELET VOLUME 11.4 fL (7.4-10.4); MONOCYTES 6.3 % (2-11); PLATELET COUNT 239 10x3/uL (130-400); RDW 16.2 % (11.5-14.5); WBC 9.4 10x3/uL (4.8-10.8)
[2017-11-07 07:01] LABS: ALBUMIN 2.2 g/dL (3.4-5.0); ANION GAP 16.8 mmol/L (8-16); BILIRUBIN - TOTAL 0.81 mg/dL (0.2-1.3); CALCIUM 8.2 mg/dL (8.5-10.1); PHOSPHOROUS 2.2 mg/dL (2.5-4.9); POTASSIUM - SERUM 3.8 mmol/L (3.5-5.1); PROTEIN - SERUM 6.4 g/dL (6.4-8.2)
[2017-11-07 08:04] VITALS: BP 133/56
[2017-11-07 13:22] VITALS: BP 113/61
[2017-11-07 15:16] LABS: ANION GAP 16.7 mmol/L (8-16); CALCIUM 7.9 mg/dL (8.5-10.1); CARBON DIOXIDE 18.4 mmol/L (21.0-32.0); CREATININE - SERUM 1.8 mg/dL (0.6-1.3); POTASSIUM - SERUM 4.1 mmol/L (3.5-5.1)
[2017-11-07 15:45] VITALS: BP 118/64
[2017-11-07 19:00] VITALS: BP 134/35
[2017-11-08 04:00] VITALS: BP 131/59
[2017-11-08 05:10] LABS: BASOPHILS 0.1 % (0-2); EOSINOPHILS 0.2 % (0-7); HEMATOCRIT 30.9 % (36.0-48.0); HEMOGLOBIN 10.1 g/dL (12-16); IMMATURE GRANULOCYTES 0.5 % (0-5); LYMPHOCYTES 7.1 % (15-50); MCH 28.5 pg (26.0-34.0); MCHC 32.7 g/dL (31.0-37.0); MEAN PLATELET VOLUME 11.8 fL (7.4-10.4); NEUTROPHILS 89.1 % (40-80); PLATELET COUNT 234 10x3/uL (130-400); RBC 3.55 10x6/uL (4.00-5.40)
[2017-11-08 05:11] LABS: WBC 17.2 10x3/uL (4.8-10.8)
[2017-11-08 05:35] LABS: ALBUMIN 2.1 g/dL (3.4-5.0); ANION GAP 17.7 mmol/L (8-16); BILIRUBIN - TOTAL 0.77 mg/dL (0.2-1.3); CALCIUM 8.2 mg/dL (8.5-10.1); CARBON DIOXIDE 17.6 mmol/L (21.0-32.0); CREATININE - SERUM 1.6 mg/dL (0.6-1.3); MAGNESIUM - SERUM 2.1 mg/dL (1.8-2.4); POTASSIUM - SERUM 4.3 mmol/L (3.5-5.1); PROTEIN - SERUM 5.8 g/dL (6.4-8.2)
[2017-11-08 05:37] LABS: PHOSPHOROUS 2.8 mg/dL (2.5-4.9)
[2017-11-08 08:31] VITALS: BP 117/63
[2017-11-08 12:00] VITALS: BP 120/63
[2017-11-08 15:38] LABS: ANION GAP 17.8 mmol/L (8-16); CALCIUM 8.7 mg/dL (8.5-10.1); CARBON DIOXIDE 17.2 mmol/L (21.0-32.0); CREATININE - SERUM 1.8 mg/dL (0.6-1.3)
[2017-11-08 19:00] VITALS: BP 129/60
[2017-11-09 04:00] VITALS: BP 127/48
[2017-11-09 06:05] LABS: BASOPHILS 0 % (0-2); EOSINOPHILS 0.3 % (0-7); HEMATOCRIT 29.2 % (36.0-48.0); HEMOGLOBIN 9.5 g/dL (12-16); IMMATURE GRANULOCYTES 0.7 % (0-5); LYMPHOCYTES 9.1 % (15-50); MCH 28.6 pg (26.0-34.0); MCHC 32.5 g/dL (31.0-37.0); MEAN PLATELET VOLUME 11.3 fL (7.4-10.4); MONOCYTES 3.5 % (2-11); NEUTROPHILS 86.4 % (40-80); PLATELET COUNT 253 10x3/uL (130-400); RBC 3.32 10x6/uL (4.00-5.40); RDW 16.3 % (11.5-14.5); WBC 14.4 10x3/uL (4.8-10.8)
[2017-11-09 06:27] LABS: ALBUMIN 1.9 g/dL (3.4-5.0); ANION GAP 15.6 mmol/L (8-16); BILIRUBIN - TOTAL 0.61 mg/dL (0.2-1.3); CALCIUM 8.5 mg/dL (8.5-10.1); CREATININE - SERUM 1.5 mg/dL (0.6-1.3); PHOSPHOROUS 3.3 mg/dL (2.5-4.9); POTASSIUM - SERUM 3.6 mmol/L (3.5-5.1); PROTEIN - SERUM 6.2 g/dL (6.4-8.2)
[2017-11-09 08:11] VITALS: BP 120/57
[2017-11-09 12:29] VITALS: BP 120/57
[2017-11-09 13:12] LABS: HEPATITIS C ANTIBODY 0.1 (0.0-0.9)
[2017-11-09 15:52] LABS: ANION GAP 14.3 mmol/L (8-16); CALCIUM 8.4 mg/dL (8.5-10.1); CARBON DIOXIDE 19.1 mmol/L (21.0-32.0); CREATININE - SERUM 1.5 mg/dL (0.6-1.3); POTASSIUM - SERUM 3.4 mmol/L (3.5-5.1)
[2017-11-09 16:11] VITALS: BP 120/55
[2017-11-10 04:30] VITALS: BP 126/55
[2017-11-10 06:49] LABS: BASOPHILS 0.1 % (0-2); EOSINOPHILS 0.2 % (0-7); HEMATOCRIT 30.4 % (36.0-48.0); HEMOGLOBIN 10.1 g/dL (12-16); IMMATURE GRANULOCYTES 0.9 % (0-5); MCH 28.7 pg (26.0-34.0); MCHC 33.2 g/dL (31.0-37.0); MCV 86.4 fL (80.0-100.0); MEAN PLATELET VOLUME 11.1 fL (7.4-10.4); MONOCYTES 3.8 % (2-11); PLATELET COUNT 225 10x3/uL (130-400); RBC 3.52 10x6/uL (4.00-5.40); RDW 16.1 % (11.5-14.5); WBC 12.2 10x3/uL (4.8-10.8)
[2017-11-10 07:10] LABS: ALBUMIN 1.9 g/dL (3.4-5.0); ANION GAP 16.3 mmol/L (8-16); BILIRUBIN - TOTAL 0.58 mg/dL (0.2-1.3); CALCIUM 8.4 mg/dL (8.5-10.1); CARBON DIOXIDE 19.1 mmol/L (21.0-32.0); CREATININE - SERUM 1.4 mg/dL (0.6-1.3); PHOSPHOROUS 3.6 mg/dL (2.5-4.9); POTASSIUM - SERUM 3.4 mmol/L (3.5-5.1); PROTEIN - SERUM 6.3 g/dL (6.4-8.2)
[2017-11-10 07:56] VITALS: BP 120/59
[2017-11-10 12:02] VITALS: BP 128/55
[2017-11-10 16:04] VITALS: BP 123/57
[2017-11-10 16:12] LABS: ANION GAP 16.9 mmol/L (8-16); CALCIUM 8.3 mg/dL (8.5-10.1); CARBON DIOXIDE 19.6 mmol/L (21.0-32.0); CREATININE - SERUM 1.3 mg/dL (0.6-1.3); POTASSIUM - SERUM 3.5 mmol/L (3.5-5.1)
[2017-11-10 20:51] VITALS: BP 103/61
[2017-11-11 00:29] VITALS: BP 111/48
[2017-11-11 04:17] VITALS: BP 118/59
[2017-11-11 04:47] LABS: BASOPHILS 0 % (0-2); EOSINOPHILS 0.3 % (0-7); HEMATOCRIT 31.9 % (36.0-48.0); HEMOGLOBIN 10.6 g/dL (12-16); IMMATURE GRANULOCYTES 0.9 % (0-5); LYMPHOCYTES 7.7 % (15-50); MCH 28.3 pg (26.0-34.0); MCHC 33.2 g/dL (31.0-37.0); MCV 85.1 fL (80.0-100.0); MEAN PLATELET VOLUME 11.2 fL (7.4-10.4); MONOCYTES 5.1 % (2-11); PLATELET COUNT 252 10x3/uL (130-400); RBC 3.75 10x6/uL (4.00-5.40); RDW 15.9 % (11.5-14.5); WBC 14.5 10x3/uL (4.8-10.8)
[2017-11-11 06:19] LABS: BILIRUBIN - TOTAL 0.7 mg/dL (0.2-1.3); CARBON DIOXIDE 16.9 mmol/L (21.0-32.0); CREATININE - SERUM 1.3 mg/dL (0.6-1.3); MAGNESIUM - SERUM 1.9 mg/dL (1.8-2.4); PHOSPHOROUS 2.9 mg/dL (2.5-4.9); PROTEIN - SERUM 5.8 g/dL (6.4-8.2)
[2017-11-11 06:20] LABS: ANION GAP 17.3 mmol/L (8-16); POTASSIUM - SERUM 4.2 mmol/L (3.5-5.1)
[2017-11-11 08:00] VITALS: BP 112/54
[2017-11-11 12:00] VITALS: BP 111/55
[2017-11-11 15:46] LABS: ANION GAP 15.1 mmol/L (8-16); CALCIUM 7.9 mg/dL (8.5-10.1); CARBON DIOXIDE 17.4 mmol/L (21.0-32.0); CREATININE - SERUM 1.2 mg/dL (0.6-1.3); POTASSIUM - SERUM 4.5 mmol/L (3.5-5.1)
[2017-11-11 16:00] VITALS: BP 119/61
[2017-11-11 20:45] VITALS: BP 128/59
== END 2017-11-11 23:27 | disposition hospice, inpatient (51) | DRG 871 ==
LOC: D.ER 10:05 → D.SDCHOLD 16:59 → D.M2 16:59
PROVIDERS: Emergency Medicine; Family Medicine; Internal Medicine Nephrology
DX: A41.9 Sepsis, unspecified organism (principal); J11.00 Influenza due to unidentified influenza virus with unspecified type of pneumonia; G93.41 Metabolic encephalopathy; E43 Unspecified severe protein-calorie malnutrition; R53.2 Functional quadriplegia; N17.9 Acute kidney failure, unspecified; E87.1 Hypo-osmolality and hyponatremia; F05 Delirium due to known physiological condition; E87.0 Hyperosmolality and hypernatremia; Z68.20 Body mass index [BMI] 20.0-20.9, adult; K72.90 Hepatic failure, unspecified without coma; G20 Parkinson's disease; E03.9 Hypothyroidism, unspecified; F41.8 Other specified anxiety disorders; I48.2 Chronic atrial fibrillation; K59.00 Constipation, unspecified; N18.9 Chronic kidney disease, unspecified; E86.0 Dehydration; E87.6 Hypokalemia; Z95.0 Presence of cardiac pacemaker

== ENCOUNTER 2017-11-11 22:30 | Inpatient (IN) | payer OTHER ==
[~2017-11-11] VITALS: Ht 154.9 cm; Wt 49.9 kg
[~2017-11-11 22:30] MED LIST changes: +AUGMENTIN 875-11 TAB PO; +HYDROCODON-ACE1 EAC7 PO; +TAMIFLU75 MG PO
[2017-11-12 08:00] VITALS: BP 125/61
[2017-11-12 12:22] VITALS: Ht 154.9 cm; Wt 49.9 kg
[2017-11-13 08:12] VITALS: BP 94/55
[2017-11-13 11:30] VITALS: BP 104/48
[2017-11-13 15:40] VITALS: BP 110/74
[2017-11-13 21:52] VITALS: BP 100/57
[2017-11-14 08:00] VITALS: BP 111/55
[2017-11-14 19:00] VITALS: BP 105/63
[2017-11-15 08:05] VITALS: BP 94/53
[2017-11-15 19:00] VITALS: BP 94/45
[2017-11-16 09:03] VITALS: BP 85/38
[2017-11-16 19:00] VITALS: BP 58/21
== END 2017-11-17 09:13 | DRG 951 ==
LOC: D.M2 22:30
DX: Z51.5 Encounter for palliative care (principal)